=== PATIENT | female | born 1995 | race Caucasian/White ===

== ENCOUNTER 2017-09-04 20:46 | Outpatient (CLI) | payer MEDICAID ==
[~2017-09-04] VITALS: Ht 185.4 cm; Wt 127.7 kg
[~2017-09-04 20:46] MED LIST: AGM875T PO; ANTI14DR2 OT; CIPRO HC RIGHT EAR; DEPAKOTE PO; DVL250TEC PO; FAMO-119 PO; HYDR-3730 PO; LEVO500T69 PO; ONDA-42 PO; PROZAC; TOPAMAX; TRI SPRINTEC PO; TRM50T PO
[2017-09-04 21:11] VITALS: BP 127/72
[2017-09-04] MEDS ORDERED: PREN1TAB19 PO (21:28)
[2017-09-04] MEDS ORDERED: TOPI200T25 PO (21:28)
--- NOTE | 2017-09-05 08:56 | Physician Query-Final Dx ---
JENIFER QUIGLEY 09/05/17 0855: Clinic Account Progress/Dx Physician Query: Please give diagnosis Date of Service Sep 04, 2017 at 20:46 SAIMA TEJADA MD 09/06/17 0817: Clinic Account Progress/Dx DIAGNOSIS: Diagnosis false labor JENIFER QUIGLEY Sep 05, 2017 08:55 SAIMA TEJADA MD Sep 06, 2017 08:17
== END 2017-09-04 21:45 | disposition home or self-care (01) ==
LOC: LDRP 20:46 → WSo 20:46
PROVIDERS: ATTEND Obstetrics & Gynecology
DX: O47.1 False labor at or after 37 completed weeks of gestation (principal); Z3A.37 37 weeks gestation of pregnancy
CPT/HCPCS: 99212

== ENCOUNTER 2017-09-15 11:55 | Outpatient (CLI) | payer MEDICAID ==
[~2017-09-15] VITALS: Ht 185.4 cm; Wt 128.8 kg
[~2017-09-15 11:55] MED LIST changes: +PREN1TAB19 PO; +TOPI200T25 PO
[2017-09-15 12:01] VITALS: BP 121/75
== END 2017-09-15 12:15 | disposition home or self-care (01) ==
LOC: PREOP 11:55
PROVIDERS: ATTEND Obstetrics & Gynecology
DX: Z01.818 Encounter for other preprocedural examination (principal); Z11.2 Encounter for screening for other bacterial diseases; O82 Encounter for cesarean delivery without indication
CPT/HCPCS: 87081

== ENCOUNTER 2017-09-17 10:04 | Inpatient (IN) | payer MEDICAID ==
[~2017-09-17] VITALS: Ht 185.4 cm; Wt 125.2 kg
[2017-09-17 10:15] VITALS: BP 119/70
[2017-09-17] MEDS ORDERED: D5 LR IV SOLUTION 1,000 ML IV SCH (10:17)
[2017-09-17] MEDS ORDERED: ceFAZolin 2 GM IV Premixed 50 ML IV ONE ×2 (10:30)
[2017-09-17] MEDS ORDERED: metroNIDAZOLE 500MG/100ML IVPB 100 ML IV NR (10:30)
[2017-09-17 10:58] LABS: BASOPHILS % (AUTO) 0 % (0-10); EOSINOPHILS # (AUTO) 0.1 10^3/uL (0.0-0.3); EOSINOPHILS % (AUTO) 1 % (0-10); HEMATOCRIT 32 % (35-52); HEMOGLOBIN 10.9 G/DL (11.5-16.0); LYMPHOCYTES # (AUTO) 1.4 X 10^3 (1.0-4.0); LYMPHOCYTES % (AUTO) 21 % (12-44); MEAN CORPUSCULAR HEMOGLOBIN 33 PG (25-34); MEAN CORPUSCULAR HGB CONC 35 G/DL (32-36); MEAN CORPUSCULAR VOLUME 96 FL (80-99); MEAN PLATELET VOLUME 10.5 FL (7.4-10.4); MONOCYTES # (AUTO) 0.3 X 10^3 (0.0-1.0); MONOCYTES % (AUTO) 4 % (0-12); NEUTROPHILS # (AUTO) 5.1 X 10^3 (1.8-7.8); NEUTROPHILS % (AUTO) 75 % (42-75); PLATELET COUNT 209 10^3/uL (130-400); RED BLOOD COUNT 3.29 10^6/uL (4.35-5.85); WHITE BLOOD COUNT 6.8 10^3/uL (4.3-11.0)
[2017-09-17] MEDS ORDERED: LACTATED RINGERS 1,000 ML IV PRN ×2 (11:01)
[2017-09-17] MEDS ORDERED: CATHETER FLUSH 10 ML SYR IV PRN (11:15)
[2017-09-17] MEDS ORDERED: FAMOTIDINE 20MG/2ML IV (PEPCID) IV ONE (11:15)
[2017-09-17] MEDS ORDERED: CITRIC ACID/SOB CIT (BICITRA) 30 ML UDC PO ONE (11:15)
[2017-09-17] MEDS ORDERED: METOCLOPRAMIDE INJ 10 MG/2 ML (REGLAN) IV ONE (11:15)
[2017-09-17] MEDS ORDERED: fentaNYL INJECTION 100 MCG/2 ML AMP ONE (11:33)
[2017-09-17] MEDS ORDERED: OXYTOCIN/NORMAL SALINE 1,000 ML IV ONE (11:33)
[2017-09-17] MEDS ORDERED: ONDANSETRON 4 MG/2 ML (SDV) Z0FRAN ONE (11:33)
--- NOTE | 2017-09-17 11:59 | History & Physical ---
History and Physical Date Seen by Provider: Sep 17, 2017 Time Seen by Provider: 11:55 This patient is a 21-year-old G1 white female with EDC of 2 2117. She has been followed in [place] for the first portion of her transferring her care to [place] at 37 weeks gestation. She also sees Dr. Montanez high-risk OB in [place]. Her is complicated by defect including cleft lip and palate Dr. Montanez felt that these defects would not necessitate NICU at the time of delivery and felt it was appropriate for this patient to deliver at her location of choice and she is elected to deliver here. She has requested a primary which I agree with because the presenting part is at a high station even though she is at term and this patient has a history of seizure disorders that she indicates that her briefly precipitated by pain. Patient had GBS culture on September 03, 2017 that was negative. Patient denies ruptured membranes or bleeding. Allergies are none although there may be some reaction to codeine Medications are vitamins and Topamax Past medical history, past surgical history, obstetric history, family history, and social histories are per the antepartum record HEENT exam is normal Neck is supple no lymphadenopathy and no thyromegaly Abdomen is gravid soft nontender nondistended Extremities show clubbing cyanosis is no Homans sign. Pelvic exam is deferred monitor shows an occasional contraction with a normal heart rate pattern Laboratory Tests Test 09/17/17 10:35 Range/Units White Blood Count 6.8 4.3-11.0 10^3/uL Red Blood Count 3.29 L 4.35-5.85 10^6/uL Hemoglobin 10.9 L 11.5-16.0 G/DL Hematocrit 32 L 35-52 % Mean Corpuscular Volume 96 80-99 FL Mean Corpuscular Hemoglobin 33 25-34 PG Mean Corpuscular Hemoglobin Concent 35 32-36 G/DL Red Cell Distribution Width 14.0 10.0-14.5 % Platelet Count 209 130-400 10^3/uL Mean Platelet Volume 10.5 H 7.4-10.4 FL Neutrophils (%) (Auto) 75 42-75 % Lymphocytes (%) (Auto) 21 12-44 % Monocytes (%) (Auto) 4 0-12 % Eosinophils (%) (Auto) 1 0-10 % Basophils (%) (Auto) 0 0-10 % Neutrophils # (Auto) 5.1 1.8-7.8 X 10^3 Lymphocytes # (Auto) 1.4 1.0-4.0 X 10^3 Monocytes # (Auto) 0.3 0.0-1.0 X 10^3 Eosinophils # (Auto) 0.1 0.0-0.3 10^3/uL Basophils # (Auto) 0.0 0.0-0.1 10^3/uL Assessment and plan term complicated cleft lip and cleft palate. Patient also has a history of seizure disorders precipitated by pain and has elected to have a primary delivery. Presenting part is at high station and despite being at term which makes likely more appropriate in any event. Surgical risk complication recovering follow-up have been fully discussed patient agrees with plan and accepts those risks and is ready to proceed 39 week gestation complicated by left lip and palate presenting for primary delivery due to high station and maternal seizure disorder Allergies and Home Medications Allergies Coded Allergies: codeine (Verified Allergy, Unknown, RASH when younger, 09/15/17) Home Medications Vit/Iron Fumarate/FA 1 Each Tablet, 1 EACH PO DAILY, (Reported) Topiramate 200 Mg Tablet, 200 MG PO BID, (Reported) SAIMA TEJADA MD Sep 17, 2017 11:59
[2017-09-17] MEDS ORDERED: OXYTOCIN/NORMAL SALINE 500 ML IV SCH (12:24)
[2017-09-17] MEDS ORDERED: ONDANSETRON 4 MG/2 ML (SDV) Z0FRAN IVP PRN (12:30)
[2017-09-17] MEDS ORDERED: PROMETHAZINE INJ 25 MG/ML (PHENERGAN) AMP IM PRN (12:30)
[2017-09-17] MEDS ORDERED: MEPERIDINE (DEMEROL) INJ 100 MG/ML IM PRN (12:30)
[2017-09-17] MEDS ORDERED: TETANUS,DIPTH,PERTUSS P/F (BOOSTRIX) 0.5 ML VIAL IM ONE (12:30)
[2017-09-17] MEDS ORDERED: MEASLES,MUMPS,RUBELLA 1 EA INJ SC ONE (12:30)
[2017-09-17] MEDS ORDERED: D5 LR IV SOLUTION 1,000 ML IV ONE (12:32)
[2017-09-17] MEDS ORDERED: PHENYLEPHRINE 100 MCG/ML 10 ML (ANESTHESIA) SYR ONE (13:30)
[2017-09-17 15:56] VITALS: BP 99/67
[2017-09-17] MEDS: KETOROLAC 30 MG/ML VIAL IVP SCH (16:00)
[2017-09-17] MEDS: oxyCODONE/APAP 10/325MG (PERCOCET 10) TABLET PO PRN ×2 (16:00→19:59)
[2017-09-17] MEDS: DOCUSATE SODIUM 100 MG (COLACE) CAP PO SCH (19:58)
[2017-09-17 20:00] VITALS: BP 114/70
--- NOTE | 2017-09-17 21:01 | OPERATIVE REPORT ---
DATE OF SERVICE: 09/17/2017 PREOPERATIVE DIAGNOSES: Term at 39 weeks gestation with high station at term and with known anomaly of the cleft lip and cleft palate. POSTOPERATIVE DIAGNOSES: Term at 39 weeks gestation with high station at term and with known anomaly of the cleft lip and cleft palate. OPERATIVE PROCEDURE: Primary low transverse delivery of a viable male infant with Apgars that are pending. Weight is 6 pounds 10 ounces. Cord blood arterial gas of 7.2 and a time of 1304. OPERATIVE DESCRIPTION: With the patient in the supine position under satisfactory spinal anesthesia, she was prepped and draped in the usual fashion for abdominal surgery. Squires catheter was placed in the urinary bladder. A Pfannenstiel incision made through the skin with a scalpel. The patient had been entered in the usual manner. Bladder retractor placed in position clean scalpel used to make a 4 cm hysterotomy incision transversally across the lower uterine segment that was extended by blunt dissection as well. Pea green amniotic fluid was released on the amniotomy. The incision was extended bluntly. Hughes forceps were applied to facilitate the delivery of a viable male infant. Hughes forceps were applied to avoid the inherent pressure on the upper abdomen as this patient has a history of seizures when under and pain. The delivery was quite simple, with the Hughes forceps. The was bulb suctioned on delivery of the head. The did have a cleft lip and palate. There was a double nuchal cord that was easily released. The delivery was completed and the was bulb suctioned as the cord was doubly clamped and cut. The passed to the pediatric attendant, was Dr. Stearns some bacteriology research assistant. The cord bloods were obtained. The placenta delivered spontaneously Hagan. It was normal with a 3-vessel cord. The uterus was exteriorized, the interior wiped clean with a wet laparotomy sponge and the uterine incision closed with a running lock suture of 2-0 Vicryl. Hemostasis was complete. The uterus was returned to abdominal cavity. All blood clot and debris removed from the abdominal cavity. With sponge and needle counts correct, hemostasis assured. The anterior parietal peritoneum was closed with a running suture of 2-0 Vicryl. The rectus muscles were closed with that suture as well. The rectus fascia was closed with 2-0 Vicryl, the subcutaneous tissue with 2-0 Vicryl and the skin was stapled. Sponge and needle counts were correct at the end of the procedure. Estimated blood loss for procedure around 600 mL. The patient tolerated the procedure well and was transferred to recovery room in stable condition. The was in the cubicle under the care of Dr. Stearns as the was completed. Job ID: [id number] DocumentID: [id number] Dictated Date: 09/17/2017 13:26:06 Color Tester Date: 09/17/2017 21:00:17 Dictated By: SAIMA TEJADA MD
[2017-09-18 00:56] VITALS: BP 108/67
[2017-09-18] MEDS: KETOROLAC 30 MG/ML VIAL IVP SCH ×3 (00:56→20:25)
[2017-09-18] MEDS: oxyCODONE/APAP 10/325MG (PERCOCET 10) TABLET PO PRN ×2 (02:06→15:49)
[2017-09-18 04:45] VITALS: BP 104/74
[2017-09-18 08:00] VITALS: BP 108/65
[2017-09-18] MEDS: DOCUSATE SODIUM 100 MG (COLACE) CAP PO SCH ×2 (08:17→21:19)
--- NOTE | 2017-09-18 08:34 | Progress Note-Standard ---
Standard Progress Note Progress Notes/Assess & Plan Date Seen by Provider: Sep 18, 2017 Time Seen by Provider: 08:33 Progress/Assessment & Plan This patient is without complaint. She is ambulating, voiding, and by mouth well and has good pain control. She denies headache, denies shortness breath, denies nausea vomiting, denies chest pain. Vital Signs Date Time Temp Pulse Resp B/P (MAP) Pulse Ox O2 Delivery O2 Flow Rate FiO2 09/18/17 08:00 96.6 80 20 108/65 (79) 99 Room Air 09/18/17 04:45 97.4 80 18 104/74 (84) 99 Room Air 09/18/17 00:56 98.2 84 20 108/67 (81) 99 Room Air 09/17/17 20:00 98.1 70 18 114/70 (85) 99 Room Air 09/17/17 15:56 97.3 72 18 99/67 (78) 100 Room Air 09/17/17 15:45 Room Air 09/17/17 10:15 98.1 93 18 119/70 (86) 98 Room Air I & O 09/18/17 07:00 Intake Total 5020 ml Output Total 2300 ml Balance 2720 ml Vital signs are stable. Patient is afebrile. Abdomen is benign. Surgical incision is clean dry and intact. Adela show clubbing cyanosis. There is no Homans sign. There is some pretibial pitting edema that is normal. Assessment and plan is operative day number 1 status post primary doing well. Plan is for routine,. Convalescence care SAIMA TEJADA MD Sep 18, 2017 8:34 am
[2017-09-18 12:00] VITALS: BP 112/64
[2017-09-18] MEDS: IBUPROFEN 800 MG (MOTRIN) TAB PO SCH ×2 (12:36→18:47)
--- NOTE | 2017-09-18 15:08 | Anesthesia-Regional Post-Op ---
Regional Patient Condition Mental Status: Alert, Oriented x3 Circulation: Same as Pre-Op Headache: Absent Sensation: Full Recovery Motor Block: Absent Post Op Complications Complications None Follow Up Care/Instructions Patient Instructions None needed. Anesthesia/Patient Condition Patient is doing well, no complaints, stable vital signs, no apparent adverse anesthesia problems. No complications reported per nursing. BRANDYN BANKS CRNA Sep 18, 2017 15:07
[2017-09-18 15:55] VITALS: BP 123/75
[2017-09-18 21:19] VITALS: BP 110/68
[2017-09-19 04:10] VITALS: BP 122/77
[2017-09-19] MEDS: IBUPROFEN 800 MG (MOTRIN) TAB PO SCH ×2 (04:10→10:10)
--- NOTE | 2017-09-19 07:40 | Progress Note-Standard ---
Standard Progress Note Progress Notes/Assess & Plan Date Seen by Provider: Sep 19, 2017 Time Seen by Provider: 07:39 Progress/Assessment & Plan This patient is without complaint. She is ambulating, voiding, and by mouth well and has good pain control. She denies headache, denies shortness breath, denies nausea vomiting, denies chest pain. Vital Signs Date Time Temp Pulse Resp B/P (MAP) Pulse Ox O2 Delivery O2 Flow Rate FiO2 09/18/17 08:00 96.6 80 20 108/65 (79) 99 Room Air 09/18/17 04:45 97.4 80 18 104/74 (84) 99 Room Air 09/18/17 00:56 98.2 84 20 108/67 (81) 99 Room Air 09/17/17 20:00 98.1 70 18 114/70 (85) 99 Room Air 09/17/17 15:56 97.3 72 18 99/67 (78) 100 Room Air 09/17/17 15:45 Room Air 09/17/17 10:15 98.1 93 18 119/70 (86) 98 Room Air I & O 09/18/17 07:00 Intake Total 5020 ml Output Total 2300 ml Balance 2720 ml Vital signs are stable. Patient is afebrile. Abdomen is benign. Surgical incision is clean dry and intact. Adela show clubbing cyanosis. There is no Homans sign. There is some pretibial pitting edema that is normal. Assessment and plan is operative day number 1 status post primary doing well. Plan is for routine,. Convalescence care September 19, 2017 Patient is without complaint. She is ambulating, voiding, tolerating well, has good pain control. She denies chest pain, denies shortness breath, denies nausea vomiting, denies headache. Vital Signs Date Time Temp Pulse Resp B/P (MAP) Pulse Ox O2 Delivery O2 Flow Rate FiO2 09/19/17 04:10 97.8 96 18 122/77 (92) 99 Room Air 09/18/17 21:19 98.1 77 18 110/68 (82) 99 Room Air 09/18/17 15:55 97.9 101 16 123/75 (91) 97 Room Air 09/18/17 12:00 97.4 76 20 112/64 (80) 99 Room Air 09/18/17 08:00 96.6 80 20 108/65 (79) 99 Room Air I & O 09/19/17 07:00 Intake Total 1100 ml Output Total 2050 ml Balance -950 ml Vital signs are stable. Patient is afebrile. The abdomen is benign. Surgical incision is clean dry and intact. Extremities show no clubbing cyanosis. There is no Homans sign. There is some pretibial pitting edema that is normal. Assessment and plan is operative day number 2 status post primary doing well. Plan is for discharge with allowing for rooming in until baby's discharge Final Diagnosis Term primary delivery SAIMA TEJADA MD Sep 19, 2017 7:40 am
[2017-09-19] MEDS ORDERED: IBUP-1780 PO (07:41)
[2017-09-19] MEDS ORDERED: OXYC-465 PO (07:41)
[2017-09-19] MEDS ORDERED: DOCU100C37 PO (07:41)
--- NOTE | 2017-09-19 07:42 | Discharge Instructions ---
Discharge Instructions Discharge Medications New, Converted or Re-Newed RX: RX on Chart Patient Instructions Patient Instructions: As directed Return to The Hospital For: as directed Activity & Diet Discharge Diet: No Restrictions Activity as Tolerated: No Orders-Post D/C & Referrals Follow Up Appt: RTC 1 week for incision check. Call to make follow up appt. for patient in 4 weeks. Wound Care: Remove jason, apply benzoin and steri strips. Activity Per routine post instructions. Please call in RX to patient pharmacy. Diet as tolerated Patient may shower or tub bathe as desired. Continue home meds SAIMA TEJADA MD Sep 19, 2017 7:42 am
[2017-09-19 10:00] VITALS: BP_SYST 112; BP_SYST 140; BP_DIAS 71; BP_DIAS 99
[2017-09-19] MEDS: DOCUSATE SODIUM 100 MG (COLACE) CAP PO SCH (10:09)
[2017-09-19] MEDS: oxyCODONE/APAP 10/325MG (PERCOCET 10) TABLET PO PRN (10:09)
[2017-09-19] MEDS ORDERED: TETANUS,DIPTH,PERTUSS P/F (BOOSTRIX) 0.5 ML VIAL IM ONE (11:01)
[2017-09-19] MEDS ORDERED: MEASLES,MUMPS,RUBELLA 1 EA INJ ONE (11:02)
[2017-09-19 12:25] VITALS: BP 112/71
== END 2017-09-19 12:25 | disposition home or self-care (01) | DRG 765 ==
LOC: LDRP 10:04
PROVIDERS: ADMIT Obstetrics & Gynecology; ATTEND Obstetrics & Gynecology
PROC: 10D00Z1 Extraction of Products of Conception, Low, Open Approach (ICD-10-PCS; principal; 2017-09-17 12:01)
DX: O32.4XX0 Maternal care for high head at term, not applicable or unspecified (principal); O99.354 Diseases of the nervous system complicating childbirth; G40.909 Epilepsy, unspecified, not intractable, without status epilepticus; O35.8XX0 Maternal care for other (suspected) fetal abnormality and damage, not applicable or unspecified; O69.81X0 Labor and delivery complicated by cord around neck, without compression, not applicable or unspecified; Z3A.39 39 weeks gestation of pregnancy; Z37.0 Single live birth; Z23 Encounter for immunization
CPT/HCPCS: 36415; 85025; 86850; 86900; 86901; 90707; 90715; 94664

== ENCOUNTER 2022-03-03 20:50 | Emergency (ER) | payer MEDICAID ==
[~2022-03-03] VITALS: Ht 185.5 cm; Wt 136.0 kg
[~2022-03-03 20:50] MED LIST changes: +DOCU100C37 PO; +IBUP-1780 PO; +OXYC-556 PO
--- NOTE | 2022-03-03 21:21 | ED GI ---
General Stated Complaint: HEARTBURN/CP Source of Information: Patient Exam Limitations: No Limitations History of Present Illness Date Seen by Provider: Mar 03, 2022 Time Seen by Provider: 20:46 Initial Comments 1 month of progressively worsening substernal pain GERD reflux and saw some blood in her reflux/emesis tonight. She been using baking soda to treat her symptoms. No history of endoscopy or surgeries. She does have a history of gallbladder issues. Not having any right upper quadrant pain. No fevers or chills. No history of heart disease. No history of pancreatitis or drinking. She is on lithium and venlafaxine for mental health issues. She rates her pain is 5 out of 10 Allergies and Home Medications Allergies Coded Allergies: codeine (Verified Allergy, Unknown, RASH when younger, 09/15/17) Patient Home Medication List Home Medication List Reviewed: Yes Docusate Sodium (Docusate Sodium) 100 Mg Capsule, 100 MG PO BID Prescribed by: SAIMA VELAZQUEZ on 09/19/17 0741 Ibuprofen (Ibuprofen) 800 Mg Tablet, 800 MG PO Q6H Prescribed by: SAIMA VELAZQUEZ on 09/19/17 0741 Oxycodone HCl/Acetaminophen (Oxycodone-Acetaminophen 10-325) 1 Each Tablet, 1-2 TAB PO Q4HR PRN for PAIN-MODERATE TO SEVERE Prescribed by: SAIMA VELAZQUEZ on 09/19/17 0741 Vit/Iron Fumarate/FA ( Vitamins Tablet) 1 Each Tablet, 1 EACH PO DAILY, (Reported) Entered as Reported by: LUPE PAGE on 09/04/172127 Topiramate (Topamax) 200 Mg Tablet, 200 MG PO BID, (Reported) Entered as Reported by: LUPE PAGE on 09/04/172127 Review of Systems Review of Systems Constitutional: no symptoms reported EENTM: No Symptoms Reported Respiratory: No Symptoms Reported Cardiovascular: See HPI Gastrointestinal: See HPI Genitourinary: No Symptoms Reported Musculoskeletal: no symptoms reported All Other Systems Reviewed Negative Unless Noted: Yes Past Niligxt-Flopsj-Nawunb Hx Patient Social History Tobacco Use?: Yes Tobacco type used: Cigarettes Smoking Status: Current Everyday Smoker (0.5 ppd) Use of E-Cig and/or Vaping dev: No Substance use?: No Alcohol Use?: No Immunizations Up To Date Tetanus Booster (TDap): Less than 5yrs PED Vaccines UTD: Yes Seasonal Allergies Seasonal Allergies: No Past Medical History Surgeries: Yes (knee scope, breast lumpectomy) Respiratory: No Cardiac: No Neurological: Yes (last seizure over a yr) Seizure Disorder Reproductive Disorders: No Female Reproductive Disorders: Denies Sexually Transmitted Disease: No HIV/AIDS: No Genitourinary: No Gastrointestinal: No Musculoskeletal: No Endocrine: No HEENT: No Loss of Vision: Denies Hearing Impairment: Denies Cancer: No Psychosocial: Yes Bipolar Integumentary: No Blood Disorders: No Family Medical History Asthma 19 FATHER G8 SISTER Cardiovascular disease GRANDFATHER, PATERNAL Diabetes mellitus 19 MOTHER GRANDFATHER, PATERNAL FH: liver disease 19 MOTHER Hypertension 19 MOTHER Physical Exam Vital Signs Capillary Refill : Height/Weight/BMI Height: 6'1.00" Weight: 276lbs. 0.4oz. 125.239042yq; 36.4 BMI Method:Estimated General Appearance: WD/WN, no apparent distress HEENT: PERRL/EOMI, pharynx normal Neck: non-tender, full range of motion, supple, normal inspection Respiratory: lungs clear, normal breath sounds, no respiratory distress, no accessory muscle use Cardiovascular: normal peripheral pulses, regular rate, rhythm Peripheral Pulses: 2+ Radial Pulses (R), 2+ Radial Pulses (L) Gastrointestinal: normal bowel sounds, soft, no organomegaly, tenderness (Epigastric region mild. No acute abdomen on exam) Extremities: normal range of motion, normal inspection, normal capillary refill Neurologic/Psychiatric: alert, normal mood/affect, oriented x 3 Skin: normal color, warm/dry Progress/Results/Core Measures Results/Orders My Orders Orders - FRANCES DUTTON Continuous Ekg Monitoring (03/03/22 20:53) Ekg Tracing (03/03/22 20:53) Progress Progress Note : Time: 21:20 Progress Note Plan a GI cocktail and acid inhibitor. Follow-up outpatient with general surgery for potential endoscopy Initial ECG Impression Date: Mar 03, 2022 Initial ECG Impression Time: 21:02 Initial ECG Rate: 93 Initial ECG Rhythm: Normal Sinus Initial ECG Intervals: Normal Initial ECG Impression: Normal Comment Normal sinus rhythm without clinically relevant ST elevation or depression. Departure Impression Primary Impression: Gastritis Qualified Codes: K29.01 - Acute gastritis with bleeding Additional Impressions: Esophagitis GERD (gastroesophageal reflux disease) Qualified Codes: K21.01 - Gastro-esophageal reflux disease with esophagitis, with bleeding Disposition: HOME, SELF-CARE Condition: Stable Departure-Patient Inst. Decision time for Depature: 21:40 Referrals: [facility] [place] (PCP/Family) Primary Care Physician HADLEY ELIZABETH DO Patient Instructions: Acid Reflux and Gastroesophageal Reflux Disease in Adults Add. Discharge Instructions: Drink plenty of fluids. If you are reflux and/or indigestion returns then take Tums, Rolaids, Mylanta, Maalox etc. Start taking pantoprazole 20 mg twice a day for the next month to reduce stomach acid production. Carafate can be taken half an hour before meals and at bedtime for a total of 4 times a day for the next 2 weeks to protect the lining of your esophagus and stomach. If your symptoms are persistent then I recommend you follow-up with the surgeon by calling for an appointment in the morning to discuss endoscopy. Scripts Sucralfate (Carafate) 1 Gram Tablet 1 GM PO QIDACHS for 14 Days, #56 TAB 0 Refills Prov: FRANCES DUTTON 03/03/22 Pantoprazole Sodium (Pantoprazole Sodium) 20 Mg Tablet.dr 20 MG PO BID for 30 Days, #60 TAB 0 Refills Prov: FARNCES DUTTON 03/03/22 Copy Copies To 1: HADLEY ELIZABETH DO FRANCES DUTTON Mar 03, 2022 21:21
[2022-03-03] MEDS ORDERED: FAMOTIDINE 20 MG (PEPCID) TABLET PO STA (21:39)
[2022-03-03] MEDS ORDERED: PANT20TA18 PO (21:42)
[2022-03-03] MEDS ORDERED: SUCR1TAB36 PO (21:42)
[2022-03-03] MEDS ORDERED: LIDOCAINE 2% VISCOUS 15 ML UDC PO ONE (21:45)
[2022-03-03] MEDS ORDERED: ANTACID SUSP 30 ML UDC (MYLANTA) PO ONE (21:45)
[2022-03-03 22:12] VITALS: BP 142/98
== END 2022-03-03 22:13 | disposition home or self-care (01) ==
LOC: EDUNIT# 20:50 → ER 20:52
DX: K21.00 Gastro-esophageal reflux disease with esophagitis, without bleeding (principal); K29.70 Gastritis, unspecified, without bleeding; F17.210 Nicotine dependence, cigarettes, uncomplicated; Z28.310 Unvaccinated for COVID-19
CPT/HCPCS: 93005

== ENCOUNTER 2022-04-06 16:44 | Emergency (ER) | payer MEDICAID ==
[~2022-04-06 16:44] MED LIST changes: +PANT20TA18 PO; +SUCR1TAB36 PO
[2022-04-06] MEDS ORDERED: SULF1TAB38 PO (17:05)
--- NOTE | 2022-04-06 17:05 | ED Integumentary General ---
General Stated Complaint: ABSCESS ON INNER RIGHT THIGH Source: patient Exam Limitations: no limitations History of Present Illness Date Seen by Provider: Apr 06, 2022 Time Seen by Provider: 16:53 Initial Comments This patient shows up to the ER by private conveyance for chief complaint of 1 day of swelling redness and a san in her left medial thigh proximally. She did have one earlier that she drained on her own. This 1 is causing pain swelling and redness. She does not have hidradenitis suppurativa. No immunocompromise. No fevers, chills, nausea vomiting or diarrhea. Allergies and Home Medications Allergies Coded Allergies: codeine (Verified Allergy, Unknown, RASH when younger, 09/15/17) Patient Home Medication List Home Medication List Reviewed: Yes Docusate Sodium (Docusate Sodium) 100 Mg Capsule, 100 MG PO BID Prescribed by: SAIMA VELAZQUEZ on 09/19/17 0741 Ibuprofen (Ibuprofen) 800 Mg Tablet, 800 MG PO Q6H Prescribed by: SAIMA VELAZQUEZ on 09/19/17 0741 Oxycodone HCl/Acetaminophen (Oxycodone-Acetaminophen 10-325) 1 Each Tablet, 1-2 TAB PO Q4HR PRN for PAIN-MODERATE TO SEVERE Prescribed by: SAIMA VELAZQUEZ on 09/19/17 0741 Pantoprazole Sodium (Pantoprazole Sodium) 20 Mg Tablet.dr, 20 MG PO BID Prescribed by: FRANCES DUTTON on 03/03/222141 Vit/Iron Fumarate/FA ( Vitamins Tablet) 1 Each Tablet, 1 EACH PO DAILY, (Reported) Entered as Reported by: LUPE PAGE on 09/04/172127 Sucralfate (Carafate) 1 Gram Tablet, 1 GM PO QIDACHS Prescribed by: FRANCES DUTTON on 03/03/222141 Sulfamethoxazole/Trimethoprim (Bactrim Ds Tablet) 1 Each Tablet, 1 EACH PO BID Prescribed by: FRANCES DUTTON on 04/06/221704 Topiramate (Topamax) 200 Mg Tablet, 200 MG PO BID, (Reported) Entered as Reported by: LUPE PAGE on 09/04/172127 Review of Systems Review of Systems Constitutional: No chills, No diaphoresis EENTM: No ear discharge, No ear pain Respiratory: No cough Cardiovascular: no symptoms reported Gastrointestinal: no symptoms reported Genitourinary: no symptoms reported Musculoskeletal: no symptoms reported All Other Systems Reviewed Negative Unless Noted: Yes Past Fconzai-Gqgzph-Ypligz Hx Patient Social History Tobacco Use?: No Use of E-Cig and/or Vaping dev: No Immunizations Up To Date Tetanus Booster (TDap): Less than 5yrs PED Vaccines UTD: Yes Seasonal Allergies Seasonal Allergies: No Past Medical History Surgery/Hospitalization HX: C SECTION Surgeries: Yes (knee scope, breast lumpectomy) Respiratory: No Cardiac: No Neurological: Yes (last seizure over a yr) Seizure Disorder Reproductive Disorders: No Female Reproductive Disorders: Denies Sexually Transmitted Disease: No HIV/AIDS: No Genitourinary: No Gastrointestinal: No Musculoskeletal: No Endocrine: No HEENT: No Loss of Vision: Denies Hearing Impairment: Denies Cancer: No Psychosocial: Yes Bipolar Integumentary: No Blood Disorders: No Family Medical History Asthma 19 FATHER G8 SISTER Cardiovascular disease GRANDFATHER, PATERNAL Diabetes mellitus 19 MOTHER GRANDFATHER, PATERNAL FH: liver disease 19 MOTHER Hypertension 19 MOTHER Physical Exam Vital Signs Capillary Refill : General Appearance: WD/WN, no apparent distress HEENT: PERRL/EOMI, pharynx normal Neck: full range of motion, normal inspection Cardiovascular: normal peripheral pulses, regular rate, rhythm Respiratory: no respiratory distress, no accessory muscle use Skin: other (Left inner proximal medial thigh has a san with some surrounding induration, fluctuance and erythema. ) Procedures/Interventions I&D : Site: left medial thigh Blade Size: 11 I & D Procedure: betadine prep (Alcohol) Progress Site was thoroughly cleaned and abraded using alcohol. We are allowed to dry and then we used a 25-gauge 1-1/2 inch needle to infiltrate with 3 cc of 1% lidocaine. When the patient was ascertained to be well anesthetized in the area we used an 11 blade scalpel and made a crosswise incision 3 mm x 4 mm. Drained about 5 cc of thin purulent material. Using a blunt end of a sterile cotton tip swab we broke up loculations, flushed and dressed with gauze. The patient tolerated the procedure well. Progress/Results/Core Measures Results/Orders My Orders Orders - FRANCES DUTTON Sulfamethoxazole/Trimet Ds Tab (Bactrim (04/06/22 17:15) Dipht,Pertuss(Acell),Tet Adult (Boostrix (04/06/22 17:30) Progress Progress Note : Time: 17:03 Progress Note We will start her on Bactrim twice daily for a week and I&D after using lidocaine. Departure Impression Primary Impression: Folliculitis Additional Impression: Abscess Disposition: 01 HOME, SELF-CARE Condition: Stable Departure-Patient Inst. Decision time for Depature: 17:20 Referrals: [facility] (PCP/Family) Primary Care Physician Patient Instructions: Abscess Incision and Drainage (DC) Add. Discharge Instructions: Keep the skin clean with regular soap and water and dry thoroughly. Change the dressing as often as necessary for soiling or at least daily until it stops draining. Typically will stop draining in 1 to 2 days. Tylenol and Motrin as necessary for pain. Bactrim DS 1 tablet twice a day for a week to prevent recurrent infections. If the wound heals over and looks good then you may take the antibiotics for another 1 or 2 days and stop them early. Scripts Sulfamethoxazole/Trimethoprim (Bactrim Ds Tablet) 1 Each Tablet 1 EACH PO BID for 7 Days, #14 TAB 0 Refills Prov: FRANCES DUTTON 04/06/22 FRANCES DUTTON Apr 06, 2022 17:05
[2022-04-06] MEDS ORDERED: TRIM/SULFAMETH 160/800 (SEPTRA DS) TAB PO ONE (17:15)
[2022-04-06 17:30] VITALS: BP 132/86
[2022-04-06] MEDS ORDERED: TETANUS,DIPTH,PERTUSS P/F (BOOSTRIX) 0.5 ML VIAL IM ONE (17:30)
== END 2022-04-06 17:30 | disposition home or self-care (01) ==
LOC: EDUNIT# 16:44 → ER 16:47
DX: L02.416 Cutaneous abscess of left lower limb (principal); L73.9 Follicular disorder, unspecified; Z23 Encounter for immunization
CPT/HCPCS: 10060; 90715

== ENCOUNTER 2022-04-12 20:59 | Emergency (ER) | payer MEDICAID ==
[~2022-04-12] VITALS: Ht 185.5 cm; Wt 124.0 kg
[~2022-04-12 20:59] MED LIST changes: +SULF1TAB38 PO
[2022-04-12] MEDS ORDERED: CEPH500T PO (21:50)
--- NOTE | 2022-04-12 21:50 | ED Integumentary General ---
General Stated Complaint: CYST Source: patient Exam Limitations: no limitations History of Present Illness Date Seen by Provider: Apr 12, 2022 Time Seen by Provider: 21:47 Initial Comments To Er with c/o "cyst" lower anterior abdominal wall. This was noticed yesterday. She is on bactrim for left thigh folliculitis seen here in ER 6 days ago. No fevers or chills. Timing/Duration: just prior to arrival Severity: moderate Location: none Associated Symptoms: denies symptoms Allergies and Home Medications Allergies Coded Allergies: codeine (Verified Allergy, Unknown, RASH when younger, 09/15/17) Patient Home Medication List Home Medication List Reviewed: Yes Docusate Sodium (Docusate Sodium) 100 Mg Capsule, 100 MG PO BID Prescribed by: SAIMA VELAZQUEZ on 09/19/17 0741 Ibuprofen (Ibuprofen) 800 Mg Tablet, 800 MG PO Q6H Prescribed by: SAIMA VELAZQUEZ on 09/19/17 0741 Oxycodone HCl/Acetaminophen (Oxycodone-Acetaminophen 10-325) 1 Each Tablet, 1-2 TAB PO Q4HR PRN for PAIN-MODERATE TO SEVERE Prescribed by: SAIMA VELAZQUEZ on 09/19/17 0741 Pantoprazole Sodium (Pantoprazole Sodium) 20 Mg Tablet.dr, 20 MG PO BID Prescribed by: FRANCES DUTTON on 03/03/222141 Vit/Iron Fumarate/FA ( Vitamins Tablet) 1 Each Tablet, 1 EACH PO DAILY, (Reported) Entered as Reported by: LUPE PAGE on 09/04/172127 Sucralfate (Carafate) 1 Gram Tablet, 1 GM PO QIDACHS Prescribed by: FRANCES DUTTON on 03/03/222141 Sulfamethoxazole/Trimethoprim (Bactrim Ds Tablet) 1 Each Tablet, 1 EACH PO BID Prescribed by: FRANCES DUTTON on 04/06/22 170 Topiramate (Topamax) 200 Mg Tablet, 200 MG PO BID, (Reported) Entered as Reported by: LUPE PAGE on 09/04/172127 Review of Systems Review of Systems Constitutional: see HPI EENTM: see HPI Respiratory: no symptoms reported Cardiovascular: no symptoms reported Genitourinary: no symptoms reported Musculoskeletal: no symptoms reported Skin: see HPI Psychiatric/Neurological: No Symptoms Reported Endocrine: No Symptoms Reported Past Gvikgpz-Xwjvni-Gofygm Hx Immunizations Up To Date Tetanus Booster (TDap): Less than 5yrs PED Vaccines UTD: Yes Seasonal Allergies Seasonal Allergies: No Past Medical History Surgery/Hospitalization HX: C SECTION Surgeries: Yes (knee scope, breast lumpectomy) Respiratory: No Cardiac: No Neurological: Yes (last seizure over a yr) Seizure Disorder Reproductive Disorders: No Female Reproductive Disorders: Denies Sexually Transmitted Disease: No HIV/AIDS: No Genitourinary: No Gastrointestinal: No Musculoskeletal: No Endocrine: No HEENT: No Loss of Vision: Denies Hearing Impairment: Denies Cancer: No Psychosocial: Yes Bipolar Integumentary: No Blood Disorders: No Family Medical History Asthma 19 FATHER G8 SISTER Cardiovascular disease GRANDFATHER, PATERNAL Diabetes mellitus 19 MOTHER GRANDFATHER, PATERNAL FH: liver disease 19 MOTHER Hypertension 19 MOTHER Physical Exam Vital Signs Capillary Refill : General Appearance: WD/WN, no apparent distress Neck: non-tender, full range of motion Respiratory: no respiratory distress, no accessory muscle use Extremities: normal range of motion Neurologic/Psychiatric: alert, normal mood/affect, oriented x 3 Skin: normal color, warm/dry Skin Problem Character: abscess (anterior abdominal wall fluctuant abscess 3cm with about 15cm surrounding erythema.) Procedures/Interventions I&D : Blade Size: 11 Progress culture collected Progress/Results/Core Measures Results/Orders My Orders Orders - JOHN GOLDSTEIN APRN Wound Culture (04/12/22 21:42) Departure Impression Primary Impression: Abscess Disposition: 01 HOME, SELF-CARE Condition: Stable Departure-Patient Inst. Decision time for Depature: 21:49 [address]: [facility] [place] (PCP/Family) Primary Care Physician Patient Instructions: ABSCESS Add. Discharge Instructions: add the new antibiotic to the bactrim. return to ER for any worsening. Scripts Cephalexin (Cephalexin) 500 Mg Tablet 500 MG PO TID, #20 TAB Prov: JOHN GOLDSTEIN APRN 04/12/22 JOHN GOLDSTEIN APRN Apr 12, 2022 21:50
[2022-04-12] MEDS ORDERED: LIDOCAINE 1% INJ 20 ML VIAL INJ ONE (22:00)
[2022-04-12] MEDS ORDERED: cefTRIAXone 1,000 MG VIAL IM ONE (22:00)
[2022-04-12 22:40] VITALS: BP 130/90
== END 2022-04-12 22:40 | disposition home or self-care (01) ==
LOC: EDUNIT# 20:59 → ER 21:16
DX: L02.211 Cutaneous abscess of abdominal wall (principal); Z28.310 Unvaccinated for COVID-19
CPT/HCPCS: 10160; 87070; 87205

== ENCOUNTER 2022-07-17 17:28 | Emergency (ER) | payer MEDICAID ==
[~2022-07-17] VITALS: Ht 182 cm; Wt 125.0 kg
[~2022-07-17 17:28] MED LIST changes: +CEPH500T PO
[2022-07-17 17:53] LABS: BASOPHILS % (AUTO) 0 % (0-10); EOSINOPHILS # (AUTO) 0.2 10^3/uL (0.0-0.3); EOSINOPHILS % (AUTO) 2 % (0-10); HEMATOCRIT 43 % (35-52); HEMOGLOBIN 14.2 g/dL (11.5-16.0); LYMPHOCYTES # (AUTO) 2.9 10^3/uL (1.0-4.0); LYMPHOCYTES % (AUTO) 28 % (12-44); MEAN CORPUSCULAR HEMOGLOBIN 31 pg (25-34); MEAN CORPUSCULAR HGB CONC 33 g/dL (32-36); MEAN CORPUSCULAR VOLUME 93 fL (80-99); MEAN PLATELET VOLUME 9.7 fL (9.0-12.2); MONOCYTES # (AUTO) 0.6 10^3/uL (0.0-1.0); MONOCYTES % (AUTO) 6 % (0-12); NEUTROPHILS # (AUTO) 6.6 10^3/uL (1.8-7.8); NEUTROPHILS % (AUTO) 64 % (42-75); PLATELET COUNT 306 10^3/uL (130-400); WHITE BLOOD COUNT 10.4 10^3/uL (4.3-11.0)
--- NOTE | 2022-07-17 17:54 | ED Neurological Problem ---
General Chief Complaint: Neurological Problems Stated Complaint: SEIZURE Nursing Triage Note: PT NEWLY DX DIABETIC, ASLEEP WHEN SHE HAD A SEIZURE, HX OF SEIZURES, GLUCOSE OF 101, RT SIDE WEAKNESS WITH HX OF A STROKE. Source: patient Exam Limitations: no limitations (POLLY OSHEA MD) History of Present Illness Date Seen by Provider: Jul 17, 2022 Time Seen by Provider: 17:29 Initial Comments This 26-year-old young lady presents to the emergency room via EMS after having a seizure-like episode at home. Reportedly she was taking a nap with last known well time approximately 1530. She took an insulin injection just prior to her nap. Family then observed her to be having tremoring activity which was described as seizure. She does have a known seizure disorder with her last seizure being about 3 years ago according to the patient. EMS reports she has a postictal state and right-sided weakness. Patient reportedly had a stroke 6 years ago resulting in right-sided weakness similar to how she is presenting today. EMS reported blood sugar was 101. Patient states she takes Topamax for seizures. She is alert at this time but disoriented to month and year. She knows where she is and how old she is. (POLLY OSHEA MD) Allergies and Home Medications Allergies Coded Allergies: codeine (Verified Allergy, Unknown, RASH when younger, 09/15/17) Patient Home Medication List Home Medication List Reviewed: Yes (POLLY OSHEA MD) Cephalexin (Cephalexin) 500 Mg Tablet, 500 MG PO TID Prescribed by: JOHN GOLDSTEIN on 04/12/22 2150 Docusate Sodium (Docusate Sodium) 100 Mg Capsule, 100 MG PO BID Prescribed by: SAIMA VELAZQUEZ on 09/19/17 0741 Ibuprofen (Ibuprofen) 800 Mg Tablet, 800 MG PO Q6H Prescribed by: SAIMA VELAZQUEZ on 09/19/17 0741 Oxycodone HCl/Acetaminophen (Oxycodone-Acetaminophen 10-325) 1 Each Tablet, 1-2 TAB PO Q4HR PRN for PAIN-MODERATE TO SEVERE Prescribed by: SAIMA VELAZQUEZ on 09/19/17 0741 Pantoprazole Sodium (Pantoprazole Sodium) 20 Mg Tablet.dr, 20 MG PO BID Prescribed by: FRANCES DUTTON on 03/03/222141 Vit/Iron Fumarate/FA ( Vitamins Tablet) 1 Each Tablet, 1 EACH PO DAILY, (Reported) Entered as Reported by: LUPE PAGE on 09/04/172127 Sucralfate (Carafate) 1 Gram Tablet, 1 GM PO QIDACHS Prescribed by: FRANCES DUTTON on 03/03/222141 Sulfamethoxazole/Trimethoprim (Bactrim Ds Tablet) 1 Each Tablet, 1 EACH PO BID Prescribed by: FRANCES DUTTON on 04/06/221704 Topiramate (Topamax) 200 Mg Tablet, 200 MG PO BID, (Reported) Entered as Reported by: LUPE PAGE on 09/04/172127 Review of Systems Review of Systems Constitutional: no symptoms reported Eyes: No Symptoms Reported Ears, Nose, Mouth, Throat: no symptoms reported Respiratory: no symptoms reported Cardiovascular: no symptoms reported Gastrointestinal: no symptoms reported Genitourinary: no symptoms reported : No Musculoskeletal: no symptoms reported Skin: no symptoms reported Psychiatric/Neurological: See HPI Endocrine: See HPI Hematologic/Lymphatic: No Symptoms Reported (POLLY OSHEA MD) Past Xeugysk-Xqtftu-Vqdhcx Hx Patient Social History Tobacco Use?: Yes Tobacco type used: Cigarettes Smoking Status: Current Everyday Smoker Substance use?: No Alcohol Use?: No Pt feels they are or have been: No (POLLY OSHEA MD) Immunizations Up To Date Tetanus Booster (TDap): Less than 5yrs PED Vaccines UTD: Yes (POLLY OSHEA MD) Seasonal Allergies Seasonal Allergies: No (POLLY OSHEA MD) Past Medical History Surgery/Hospitalization HX: C SECTION, 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) Seizure Disorder : No Last Menstrual Period: Jul 01, 2022 Reproductive Disorders: No Female Reproductive Disorders: Denies Sexually Transmitted Disease: No HIV/AIDS: No Genitourinary: No Gastrointestinal: No Musculoskeletal: No Endocrine: No HEENT: No Loss of Vision: Denies Hearing Impairment: Denies Cancer: No Psychosocial: Yes Bipolar Integumentary: No Blood Disorders: No (POLLY OSHEA MD) Family Medical History Asthma 19 FATHER G8 SISTER Cardiovascular disease GRANDFATHER, PATERNAL Diabetes mellitus 19 MOTHER GRANDFATHER, PATERNAL FH: liver disease 19 MOTHER Hypertension 19 MOTHER Physical Exam Vital Signs Vital Signs - First Documented 07/17/22 17:30 Temp 36.2 Pulse 109 Resp 18 Pulse Ox 98 O2 [facility] Vital Signs Capillary Refill : Less Than 3 Seconds (POLLY OSHEA MD) Height, Weight, BMI Height: 6'1.00" Weight: 276lbs. 0.4oz. 125.078029ml; 37.00 BMI Method:Estimated General Appearance: WD/WN, no apparent distress HEENT: PERRL/EOMI, normal ENT inspection Neck: normal inspection Respiratory: lungs clear, normal breath sounds, no respiratory distress Cardiovascular: regular rate, rhythm, no edema, no murmur Gastrointestinal: normal bowel sounds, non tender, soft Extremities: normal inspection, no pedal edema Neurologic/Psychiatric: alert, abnormal lithographic artist II-XII (Minimal effort to smile and close eyes, no effort to raise eyebrows, no asymmetry), other (Disoriented to month and year) Crainal Nerves: normal hearing, PERRL, abnormal speech (Sluggish speech, mild dysarthria) Coordination/Gait: normal finger to nose (Normal on the left but not able to perform on the right due to weakness) Motor/Sensory: weak motor strength RUE, weak motor strength RLE Skin: normal color, warm/dry (POLLY OSHEA MD) Stroke NIH Stroke Scale Assessment Select: Initial Level of Consciousness: 0=Alert (0), Level of Consciousness- Questions: 1=Answers one question (1), LOC Commands: 0=Performs both tasks (0), Visual Fonseca: 0=No visual loss (0), Facial Movement (Facial Paresis): 1=Minor paralysis (1), Motor Function-Arms Right: 2=Some effort/gravity (2), Motor Function-Arms Left: 0=No drift (0), Motor Function-Legs Right: 3=No effort/gravity (3), Motor Function-Legs Left: 0=No drift (0), Limb Ataxia: 0=Absent (0), Sensory: 0=Normal:no loss (0), Best Language: 0=No aphasia (0), Dysarthria: 1=Mild to moderate loss (1), Extinction & Inattention: 0=No abnormality (0), Total: 8 Progress/Results/Core Measures Results/Orders Lab Results Laboratory Tests Test 07/17/22 17:36 07/17/22 17:52 07/17/22 18:36 07/17/22 18:38 Range/Units White Blood Count 10.4 4.3-11.0 10^3/uL Red Blood Count 4.64 3.80-5.11 10^6/uL Hemoglobin 14.2 11.5-16.0 g/dL Hematocrit 43 35-52 % Mean Corpuscular Volume 93 80-99 fL Mean Corpuscular Hemoglobin 31 25-34 pg Mean Corpuscular Hemoglobin Concent 33 32-36 g/dL Red Cell Distribution Width 13.5 10.0-14.5 % Platelet Count 306 130-400 10^3/uL Mean Platelet Volume 9.7 9.0-12.2 fL Immature Granulocyte % (Auto) 0 % Neutrophils (%) (Auto) 64 42-75 % Lymphocytes (%) (Auto) 28 12-44 % Monocytes (%) (Auto) 6 0-12 % Eosinophils (%) (Auto) 2 0-10 % Basophils (%) (Auto) 0 0-10 % Neutrophils # (Auto) 6.6 1.8-7.8 10^3/uL Lymphocytes # (Auto) 2.9 1.0-4.0 10^3/uL Monocytes # (Auto) 0.6 0.0-1.0 10^3/uL Eosinophils # (Auto) 0.2 0.0-0.3 10^3/uL Basophils # (Auto) 0.0 0.0-0.1 10^3/uL Immature Granulocyte # (Auto) 0.0 0.0-0.1 10^3/uL Prothrombin Time 12.9 12.2-14.7 SEC INR Comment 0.9 0.8-1.4 Activated Partial Thromboplast Time 31 24-35 SEC D-Dimer < 0.27 0.00-0.49 UG/ML Sodium Level 138 135-145 MMOL/L Potassium Level 3.6 3.6-5.0 MMOL/L Chloride Level 102 98-107 MMOL/L Carbon Dioxide Level 26 21-32 MMOL/L Anion Gap 10 5-14 MMOL/L Blood Urea Nitrogen 14 7-18 MG/DL Creatinine 0.69 0.60-1.30 MG/DL Estimat Glomerular Filtration Rate 122 BUN/Creatinine Ratio 20 Glucose Level 65 L 70-105 MG/DL Calcium Level 9.5 8.5-10.1 MG/DL Corrected Calcium 9.3 8.5-10.1 MG/DL Total Bilirubin 0.2 0.1-1.0 MG/DL Aspartate Amino Transf (AST/SGOT) 19 5-34 U/L Alanine Aminotransferase (ALT/SGPT) 33 0-55 U/L Alkaline Phosphatase 66 40-136 U/L Troponin I < 0.028 <0.028 NG/ML Total Protein 8.3 H 6.4-8.2 GM/DL Albumin 4.3 3.2-4.5 GM/DL Serum Test, Qualitative NEGATIVE NEGATIVE Glucometer 57 *L 113 H 70-110 MG/DL Urine Color YELLOW Urine Clarity CLEAR Urine pH 6.0 5-9 Urine Specific [place] 1.020 1.016-1.022 Urine Protein NEGATIVE NEGATIVE Urine Glucose (UA) NEGATIVE NEGATIVE Urine Ketones NEGATIVE NEGATIVE Urine Nitrite NEGATIVE NEGATIVE Urine Bilirubin NEGATIVE NEGATIVE Urine Urobilinogen 0.2 < = 1.0 MG/DL Urine Leukocyte Esterase 3+ H NEGATIVE Urine RBC (Auto) TRACE-I H NEGATIVE Urine RBC 0-2 /HPF Urine WBC 5-10 H /HPF Urine Squamous Epithelial Cells 5-10 /HPF Urine Crystals NONE /LPF Urine Bacteria FEW H /HPF Urine Casts NONE /LPF Urine Mucus NEGATIVE /LPF Urine Trichomonas FEW H /HPF Urine Culture Indicated YES (MAYTE BAH DO) Medications Given in ED Current Medications Medications Dose Ordered Sig/Chandra Route Start Time Stop Time Status Last Admin Dose Admin Dextrose 50 ml ONCE ONCE IV 07/17/22 18:00 07/17/22 18:01 DC 07/17/22 18:03 50 ML (MAYTE BAH DO) Vital Signs/I&O 07/17/22 17:30 Temp 36.2 Pulse 109 Resp 18 B/P (MAP) Pulse Ox 98 O2 Delivery Room Air (MAYTE BAH DO) Progress Progress Note : Time: 18:12 Progress Note Stroke activation was paged. Fingerstick blood sugar was 57. D50 is being administered. Due to patient's history and the more profound nature of her weakness, we are following through with a stroke activation. (POLLY OSHEA MD) Progress Note : Time: 18:45 Progress Note I assumed care of the patient at shift change. She is feeling better after IV D50. When speaking to her more about her previous "stroke." She tells me that she was at [facility] in [place] and had several seizures. She does have history of seizure disorder but has not had one in a long time currently. At that time she had 4 or 5 seizures while hospitalized and woke up and "could not move my right side." When asked if she was ever told that she had a stroke from bleeding in her brain or a blood clot she states no. 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 Overall she is very low risk for stroke given her age and comorbidities. Given the fact that she is completely better after correction of her blood sugar I think symptoms are more likely related to that. CT scan is negative and labs are otherwise unremarkable. Blood sugar has remained stable after correction and she is tolerating p.o. without difficulty. She has been ambulatory and has no further weakness whatsoever and is requesting to go home. She is discharged home in otherwise stable condition. (MAYTE BAH DO) Departure Communication (Admissions) Patient weakness has completely resolved after correction of her glucose and states she feels back to normal. She is requesting to go home. I believe it safe for her to do so at this time. 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 She has not had a seizure in some time but states the other day she felt "tingly" like she might have a seizure. She is on lithium and venlafaxine, neither which has had dose changes in some time. Her CT scan is negative and her NIH is now 0. I believe she is extremely low risk for CVA. She has been ambulatory here and is tolerating p.o. Her blood sugars have remained stable since correction. She is discharged home in stable condition with close follow-up. (MAYTE BAH DO) Impression Primary Impression: Right-sided muscle weakness Additional Impression: Hypoglycemia Disposition: 01 HOME, SELF-CARE Condition: Stable Departure-Patient Inst. Referrals: [facility] (PCP/Family) Primary Care Physician Patient Instructions: Low Blood Sugar in People With Diabetes Add. Discharge Instructions: Please follow-up with your doctor in the next 24 to 48 hours. Monitor your blood sugars closely and maintain on regular diet. Return to the emergency department for any recurrence of your symptoms. 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 All discharge instructions reviewed with patient and/or family. Voiced understanding. Copy Copies To 1: [facility]/POLLY COTTO MD Jul 17, 2022 17:54 MAYTE BAH DO Jul 17, 2022 19:04
[2022-07-17] MEDS ORDERED: DEXTROSE 50% 50 ML (IMS) SYR IV ONE (18:00)
[2022-07-17 18:07] LABS: ALANINE AMINOTRANSFERASE 33 U/L (0-55); ALBUMIN 4.3 GM/DL (3.2-4.5); ALKALINE PHOSPHATASE 66 U/L (40-136); BILIRUBIN,TOTAL 0.2 MG/DL (0.1-1.0); BUN/CREATININE RATIO 20; CALCIUM 9.5 MG/DL (8.5-10.1); CARBON DIOXIDE 26 MMOL/L (21-32); CHLORIDE 102 MMOL/L (98-107); CREATININE SERUM 0.69 MG/DL (0.60-1.30); GFR ESTIMATED 122; GLUCOSE 65 MG/DL (70-105); POTASSIUM 3.6 MMOL/L (3.6-5.0); SODIUM 138 MMOL/L (135-145); TOTAL PROTEIN 8.3 GM/DL (6.4-8.2)
--- NOTE | 2022-07-17 18:20 | Diagnostic Imaging Report ---
INDICATION: Stroke activation. FINDINGS: The heart size, mediastinal configuration, and pulmonary vascularity are within normal limits. There is no pleural effusion, pneumothorax, or pneumonia. The osseous structures are unremarkable. IMPRESSION: No acute cardiopulmonary abnormality. Dictated by: Dictated on workstation # [id number]
--- NOTE | 2022-07-17 18:29 | Diagnostic Imaging Report ---
EXAMINATION: CT head without contrast. TECHNIQUE: Multiple contiguous axial images were obtained through the brain without the use of intravenous contrast. All CT scans use one or more of the following dose optimizing techniques: automated exposure control, MA and/or KvP adjustment based on patient size and exam type or iterative reconstruction. HISTORY: Neurologic deficit. COMPARISON: None available. FINDINGS: The vasquez-white matter differentiation is normal. No mass effect or midline shift. The ventricles are normal in size and configuration. Basilar cisterns are patent. There are no intra-axial or extra-axial fluid collections. There is no intracranial hemorrhage. The orbits are normal. Paranasal sinuses are normal. Mastoid air cells are clear. No soft tissue abnormality is seen. No osseus lesions or fractures are seen. IMPRESSION: No acute intracranial abnormality. Dictated by: Dictated on workstation # [id number]
[2022-07-17 18:30] LABS: FIBRIN DEGRADATION PRODUCTS < 0.27 UG/ML (0.00-0.49); INR 0.9 (0.8-1.4); PARTIAL THROMBOPLASTIN TIME 31 SEC (24-35); PROTHROMBIN TIME PATIENT 12.9 SEC (12.2-14.7)
[2022-07-17 18:48] LABS: BILIRUBIN,URINE NEGATIVE (NEGATIVE); CLARITY,URINE CLEAR; COLOR,URINE YELLOW; GLUCOSE, URINE (UA) NEGATIVE (NEGATIVE); KETONES,URINE NEGATIVE (NEGATIVE); LEUKOCYTE ESTERASE ,URINE 3+ (NEGATIVE); NITRITE,URINE NEGATIVE (NEGATIVE); PROTEIN,URINE NEGATIVE (NEGATIVE)
[2022-07-17 18:57] LABS: BACTERIA,URINE FEW /HPF; RBC,URINE 0-2 /HPF
[2022-07-17 18:58] LABS: TRICHOMONAS,URINE FEW /HPF
[2022-07-17 20:12] VITALS: BP 130/88
== END 2022-07-17 20:12 | disposition home or self-care (01) ==
LOC: EDUNIT# 17:28 → ER 17:29
DX: E16.0 Drug-induced hypoglycemia without coma (principal); T38.3X5A Adverse effect of insulin and oral hypoglycemic [antidiabetic] drugs, initial encounter; M62.81 Muscle weakness (generalized); G40.909 Epilepsy, unspecified, not intractable, without status epilepticus; F17.210 Nicotine dependence, cigarettes, uncomplicated; Z28.310 Unvaccinated for COVID-19
CPT/HCPCS: 36415; 70450; 71045; 80053; 80178; 81000; 82947; 84484; 84703; 85025; 85379; 85610; 85730; 87088; 93005; 93041

== ENCOUNTER 2022-08-08 13:00 | Emergency (ER) | payer MEDICAID ==
[~2022-08-08] VITALS: Ht 182.8 cm; Wt 142.8 kg
--- NOTE | 2022-08-08 13:14 | ED Neurological Problem ---
General Chief Complaint: Neurological Problems Stated Complaint: SEIZURES History of Present Illness Date Seen by Provider: Aug 08, 2022 Time Seen by Provider: 13:09 Initial Comments 26-year-old female presents following seizure. Patient reports she has a history of seizures. That she had not had any seizures for approximately 5 years. That recently her neurologist took her off her seizure medication. She reports that she had some earlier in July. That she had 3 yesterday while she was told the couple today. Patient currently has no symptoms. She has no loss of bowel or bladder. Patient reports she is a little tired but otherwise no other complaints. No recent illnesses. Allergies and Home Medications Allergies Coded Allergies: codeine (Verified Allergy, Unknown, RASH when younger, 09/15/17) Patient Home Medication List Home Medication List Reviewed: Yes Cephalexin (Cephalexin) 500 Mg Tablet, 500 MG PO TID Prescribed by: JOHN GOLDSTEIN on 04/12/222149 Docusate Sodium (Docusate Sodium) 100 Mg Capsule, 100 MG PO BID Prescribed by: SAIMA VELAZQUEZ on 09/19/17 0741 Ibuprofen (Ibuprofen) 800 Mg Tablet, 800 MG PO Q6H Prescribed by: SAIMA VELAZQUEZ on 09/19/17 0741 Oxycodone HCl/Acetaminophen (Oxycodone-Acetaminophen 10-325) 1 Each Tablet, 1-2 TAB PO Q4HR PRN for PAIN-MODERATE TO SEVERE Prescribed by: SAIMA VELAZQUEZ on 09/19/17 0741 Pantoprazole Sodium (Pantoprazole Sodium) 20 Mg Tablet.dr, 20 MG PO BID Prescribed by: FRANCES DUTTON on 03/03/222141 Vit/Iron Fumarate/FA ( Vitamins Tablet) 1 Each Tablet, 1 EACH PO DAILY, (Reported) Entered as Reported by: LUPE PAGE on 09/04/172127 Sucralfate (Carafate) 1 Gram Tablet, 1 GM PO QIDACHS Prescribed by: FRANCES DUTTON on 03/03/222141 Sulfamethoxazole/Trimethoprim (Bactrim Ds Tablet) 1 Each Tablet, 1 EACH PO BID Prescribed by: FRANCES DUTTON on 04/06/22 170 Topiramate (Topamax) 200 Mg Tablet, 200 MG PO BID, (Reported) Entered as Reported by: LUPE PAGE on 09/04/172127 Review of Systems Review of Systems Constitutional: No chills, No fever; malaise Eyes: No Symptoms Reported Ears, Nose, Mouth, Throat: no symptoms reported Respiratory: no symptoms reported Cardiovascular: no symptoms reported Gastrointestinal: no symptoms reported Genitourinary: no symptoms reported Musculoskeletal: no symptoms reported Skin: no symptoms reported Psychiatric/Neurological: See HPI Past Oghmwug-Jjmyyw-Hcacmi Hx Immunizations Up To Date Tetanus Booster (TDap): Less than 5yrs PED Vaccines UTD: Yes Seasonal Allergies Seasonal Allergies: No Past Medical History Surgery/Hospitalization HX: C SECTION, 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) Seizure Disorder Reproductive Disorders: No Female Reproductive Disorders: Denies Sexually Transmitted Disease: No HIV/AIDS: No Genitourinary: No Gastrointestinal: No Musculoskeletal: No Endocrine: No HEENT: No Loss of Vision: Denies Hearing Impairment: Denies Cancer: No Psychosocial: Yes Bipolar Integumentary: No Blood Disorders: No Family Medical History Asthma 19 FATHER G8 SISTER Cardiovascular disease GRANDFATHER, PATERNAL Diabetes mellitus 19 MOTHER GRANDFATHER, PATERNAL FH: liver disease 19 MOTHER Hypertension 19 MOTHER Physical Exam Vital Signs Vital Signs - First Documented 08/08/22 13:02 Temp 36.0 Pulse 100 Resp 23 B/P (MAP) 148/97 (114) O2 Delivery Room Air Capillary Refill : Height, Weight, BMI Height: 6'1.00" Weight: 276lbs. 0.4oz. 125.850075tk; 37.00 BMI Method:Estimated General Appearance: WD/WN, no apparent distress HEENT: PERRL/EOMI, pharynx normal Neck: full range of motion, supple Respiratory: lungs clear, normal breath sounds, no respiratory distress Cardiovascular: normal peripheral pulses, regular rate, rhythm Gastrointestinal: non tender, soft Extremities: non-tender, normal inspection Neurologic/Psychiatric: alert, normal mood/affect, oriented x 3 Crainal Nerves: normal hearing, normal speech, PERRL; No facial droop, No facial paresthesias, No facial weakness Motor/Sensory: no motor deficit, no sensory deficit Skin: normal color, warm/dry Progress/Results/Core Measures Results/Orders Lab Results Laboratory Tests Test 08/08/22 13:07 08/08/22 13:15 08/08/22 13:20 Range/Units Glucometer 85 70-110 MG/DL White Blood Count 7.5 4.3-11.0 10^3/uL Red Blood Count 4.36 3.80-5.11 10^6/uL Hemoglobin 13.2 11.5-16.0 g/dL Hematocrit 40 35-52 % Mean Corpuscular Volume 92 80-99 fL Mean Corpuscular Hemoglobin 30 25-34 pg Mean Corpuscular Hemoglobin Concent 33 32-36 g/dL Red Cell Distribution Width 13.1 10.0-14.5 % Platelet Count 288 130-400 10^3/uL Mean Platelet Volume 9.7 9.0-12.2 fL Immature Granulocyte % (Auto) 0 % Neutrophils (%) (Auto) 64 42-75 % Lymphocytes (%) (Auto) 29 12-44 % Monocytes (%) (Auto) 5 0-12 % Eosinophils (%) (Auto) 2 0-10 % Basophils (%) (Auto) 0 0-10 % Neutrophils # (Auto) 4.8 1.8-7.8 10^3/uL Lymphocytes # (Auto) 2.2 1.0-4.0 10^3/uL Monocytes # (Auto) 0.4 0.0-1.0 10^3/uL Eosinophils # (Auto) 0.1 0.0-0.3 10^3/uL Basophils # (Auto) 0.0 0.0-0.1 10^3/uL Immature Granulocyte # (Auto) 0.0 0.0-0.1 10^3/uL Sodium Level 139 135-145 MMOL/L Potassium Level 3.9 3.6-5.0 MMOL/L Chloride Level 103 98-107 MMOL/L Carbon Dioxide Level 28 21-32 MMOL/L Anion Gap 8 5-14 MMOL/L Blood Urea Nitrogen 9 7-18 MG/DL Creatinine 0.72 0.60-1.30 MG/DL Estimat Glomerular Filtration Rate 117 BUN/Creatinine Ratio 13 Glucose Level 89 70-105 MG/DL Calcium Level 9.9 8.5-10.1 MG/DL Corrected Calcium 9.9 8.5-10.1 MG/DL Total Bilirubin 0.2 0.1-1.0 MG/DL Aspartate Amino Transf (AST/SGOT) 21 5-34 U/L Alanine Aminotransferase (ALT/SGPT) 34 0-55 U/L Alkaline Phosphatase 68 40-136 U/L Total Protein 7.7 6.4-8.2 GM/DL Albumin 4.0 3.2-4.5 GM/DL Urine Color YELLOW Urine Clarity CLEAR Urine pH 7.0 5-9 Urine Specific [place] 1.010 L 1.016-1.022 Urine Protein NEGATIVE NEGATIVE Urine Glucose (UA) NEGATIVE NEGATIVE Urine Ketones NEGATIVE NEGATIVE Urine Nitrite NEGATIVE NEGATIVE Urine Bilirubin NEGATIVE NEGATIVE Urine Urobilinogen 0.2 < = 1.0 MG/DL Urine Leukocyte Esterase 2+ H NEGATIVE Urine RBC (Auto) TRACE-I H NEGATIVE Urine RBC RARE /HPF Urine WBC 5-10 H /HPF Urine Squamous Epithelial Cells 5-10 /HPF Urine Crystals NONE /LPF Urine Bacteria NEGATIVE /HPF Urine Casts NONE /LPF Urine Mucus NEGATIVE /LPF Urine Trichomonas FEW H /HPF Urine Culture Indicated YES My Orders Orders - MARTHA PECK L DO Cbc With Automated Diff (08/08/22 13:14) Comprehensive Metabolic Panel (08/08/22 13:14) Ua Culture If Indicated (08/08/22 13:14) Levetiracetam Injection (Keppra Injectio (08/08/22 13:15) Urine Culture (08/08/22 13:20) Medications Given in ED Current Medications Medications Dose Ordered Sig/Chandra Route Start Time Stop Time Status Last Admin Dose Admin Levetiracetam 1000 mg/Sodium Chloride 110 ml @ 440 mls/hr ONCE ONCE IV 08/08/22 13:15 08/08/22 13:29 DC 08/08/22 13:32 440 MLS/HR Vital Signs/I&O 08/08/22 13:02 Temp 36.0 Pulse 100 Resp 23 B/P (MAP) 148/97 (114) O2 Delivery Room Air Progress Progress Note : Progress Note Patient's urine is concerning for urinary tract and sent infection along with positive for trichomonas. I will start her on doxycycline along with Flagyl. Patient's labs otherwise normal. Patient with no further seizure activity while in the ER. I will restart her on an antiepileptic with Keppra due to her previous history and stopping medication for seizures. I did recommend she follow-up with her primary care provider and neurologist for further evaluation. Also to be sure that her urine clears. She is stable and discharged home Departure Impression Primary Impression: Trichomoniasis, urogenital Additional Impressions: Urinary tract infection Qualified Codes: N30.00 - Acute cystitis without hematuria Seizure Disposition: HOME, SELF-CARE Condition: Stable Departure-Patient Inst. Referrals: [facility] (PCP/Family) Primary Care Physician Patient Instructions: Trichomoniasis, Seizures, Adult ED, Urinary Tract Infection, Adult (DC) Add. Discharge Instructions: Follow-up with your primary care provider in 1 week to recheck your urine. Please follow-up with your neurologist to make them aware of your increase in recent seizures. All discharge instructions reviewed with patient and/or family. Voiced understanding. Scripts Doxycycline Monohydrate (Doxycycline Monohydrate) 100 Mg Tablet 100 MG PO BID, #14 TAB Prov: PECK,MARTHA L DO 08/08/22 Metronidazole (Metronidazole) 500 Mg Tablet 500 MG PO BID, #14 TAB Prov: PECK,MARTHA L DO 08/08/22 Levetiracetam (Keppra) 500 Mg Tablet 500 MG PO BID, #30 TAB Prov: PECK,MARTHA L DO 08/08/22 PECK,MARTHA L DO Aug 08, 2022 13:14
[2022-08-08 13:22] LABS: BASOPHILS % (AUTO) 0 % (0-10); EOSINOPHILS # (AUTO) 0.1 10^3/uL (0.0-0.3); EOSINOPHILS % (AUTO) 2 % (0-10); HEMATOCRIT 40 % (35-52); HEMOGLOBIN 13.2 g/dL (11.5-16.0); LYMPHOCYTES # (AUTO) 2.2 10^3/uL (1.0-4.0); LYMPHOCYTES % (AUTO) 29 % (12-44); MEAN CORPUSCULAR HEMOGLOBIN 30 pg (25-34); MEAN CORPUSCULAR HGB CONC 33 g/dL (32-36); MEAN CORPUSCULAR VOLUME 92 fL (80-99); MEAN PLATELET VOLUME 9.7 fL (9.0-12.2); MONOCYTES # (AUTO) 0.4 10^3/uL (0.0-1.0); MONOCYTES % (AUTO) 5 % (0-12); NEUTROPHILS # (AUTO) 4.8 10^3/uL (1.8-7.8); NEUTROPHILS % (AUTO) 64 % (42-75); PLATELET COUNT 288 10^3/uL (130-400); WHITE BLOOD COUNT 7.5 10^3/uL (4.3-11.0)
[2022-08-08 13:30] LABS: BILIRUBIN,URINE NEGATIVE (NEGATIVE); CLARITY,URINE CLEAR; COLOR,URINE YELLOW; GLUCOSE, URINE (UA) NEGATIVE (NEGATIVE); KETONES,URINE NEGATIVE (NEGATIVE); LEUKOCYTE ESTERASE ,URINE 2+ (NEGATIVE); NITRITE,URINE NEGATIVE (NEGATIVE); PROTEIN,URINE NEGATIVE (NEGATIVE)
[2022-08-08 13:40] LABS: BACTERIA,URINE NEGATIVE /HPF; RBC,URINE RARE /HPF; TRICHOMONAS,URINE FEW /HPF
[2022-08-08 13:44] LABS: BILIRUBIN,TOTAL 0.2 MG/DL (0.1-1.0); CALCIUM 9.9 MG/DL (8.5-10.1); CREATININE SERUM 0.72 MG/DL (0.60-1.30); POTASSIUM 3.9 MMOL/L (3.6-5.0); TOTAL PROTEIN 7.7 GM/DL (6.4-8.2)
[2022-08-08] MEDS ORDERED: LEVE500T99 PO (14:08)
[2022-08-08] MEDS ORDERED: DOXY100T31 PO (14:08)
[2022-08-08] MEDS ORDERED: METR-145 PO (14:08)
[2022-08-08 14:13] VITALS: BP 135/92
== END 2022-08-08 14:16 | disposition home or self-care (01) ==
LOC: EDUNIT# 13:00 → ER 13:01
DX: G40.909 Epilepsy, unspecified, not intractable, without status epilepticus (principal); A59.00 Urogenital trichomoniasis, unspecified; N39.0 Urinary tract infection, site not specified
CPT/HCPCS: 36415; 80053; 81000; 82947; 85025; 87077; 87088; 99283

== ENCOUNTER → 2022-09-09 | Outpatient (CLI) | payer MEDICAID ==
[~2022-09-09] MED LIST changes: +DOXY100T31 PO; +LEVE500T99 PO; +METR-145 PO
--- NOTE | 2022-09-09 22:50 | Diagnostic Imaging Report ---
HISTORY: Left wrist pain TECHNIQUE: 3 views of the left wrist. COMPARISON: None. FINDINGS: No acute fracture or dislocation is seen in the left wrist. Alignment appears normal. Joint spaces are preserved. No cortical erosions are seen. The pronator fat pad is not displaced. IMPRESSION: 1. No acute osseous abnormality is seen in the left wrist. Dictated by: Dictated on workstation # [id number]
== END ==
LOC: RAD 19:14
PROVIDERS: ATTEND Nurse Practitioner Family
DX: M25.532 Pain in left wrist (principal)
CPT/HCPCS: 73110

== ENCOUNTER 2022-09-23 18:22 | Emergency (ER) | payer MEDICAID ==
[~2022-09-23] VITALS: Ht 185 cm; Wt 124.0 kg
[2022-09-23] MEDS ORDERED: RX-TRIMETH/SULFA. 160-800 MG (BACTRIM DS) TAB PPK#2 PO STA (18:38)
[2022-09-23] MEDS ORDERED: SULF1TAB38 PO (18:41)
--- NOTE | 2022-09-23 18:41 | ED Integumentary General ---
General Chief Complaint: Skin/Wound Problems Stated Complaint: KNOT ON RIGHT BREAST/PAIN Nursing Triage Note: pt presents to ED with c/o a knot/abscess on the under side of right breast (JAGDEEP POSEY) History of Present Illness Date Seen by Provider: Sep 23, 2022 Time Seen by Provider: 18:33 Initial Comments 26 year old female presents with small cyst to right lower breast (approximately 6 o'clock) that she noted yesterday. History of previous cysts removed from breasts, patient reports they have always been benign. Family history of breast cancer. Patient has never had mammogram. She denies warmth or drainage from cyst. Timing/Duration: yesterday Severity: mild Location: torso Possible Cause: no cause identified Associated Symptoms: No blisters, No change in skin texture, No fever, No malaise; swelling/mass/lumps (right breast) (JAGDEEP POSEY) Allergies and Home Medications Allergies Coded Allergies: codeine (Verified Allergy, Unknown, RASH when younger, 09/15/17) Patient Home Medication List Home Medication List Reviewed: Yes (JAGDEEP POSEY) Cephalexin (Cephalexin) 500 Mg Tablet, 500 MG PO TID Prescribed by: JOHN GOLDSTEIN on 04/12/222149 Docusate Sodium (Docusate Sodium) 100 Mg Capsule, 100 MG PO BID Prescribed by: SAIMA VELAZQUEZ on 09/19/17 0741 Doxycycline Monohydrate (Doxycycline Monohydrate) 100 Mg Tablet, 100 MG PO BID Prescribed by: MARTHA PECK on 08/08/22 1408 Ibuprofen (Ibuprofen) 800 Mg Tablet, 800 MG PO Q6H Prescribed by: SAIMA VELAZQUEZ on 09/19/17 0741 Levetiracetam (Keppra) 500 Mg Tablet, 500 MG PO BID Prescribed by: MARTHA PECK on 08/08/22 1408 Metronidazole (Metronidazole) 500 Mg Tablet, 500 MG PO BID Prescribed by: MARTHA PECK on 08/08/22 1408 Oxycodone HCl/Acetaminophen (Oxycodone-Acetaminophen 10-325) 1 Each Tablet, 1-2 TAB PO Q4HR PRN for PAIN-MODERATE TO SEVERE Prescribed by: SAIMA VELAZQUEZ on 09/19/17 0741 Pantoprazole Sodium (Pantoprazole Sodium) 20 Mg Tablet.dr, 20 MG PO BID Prescribed by: FRANCES DUTTON on 03/03/222141 Vit/Iron Fumarate/FA ( Vitamins Tablet) 1 Each Tablet, 1 EACH PO DAILY, (Reported) Entered as Reported by: LUPE PAGE on 09/04/172127 Sucralfate (Carafate) 1 Gram Tablet, 1 GM PO QIDACHS Prescribed by: FRANCES DUTTON on 03/03/222141 Sulfamethoxazole/Trimethoprim (Bactrim Ds Tablet) 1 Each Tablet, 1 EACH PO BID Prescribed by: FRANCES DUTTON on 04/06/22 170 Sulfamethoxazole/Trimethoprim (Bactrim Ds Tablet) 1 Each Tablet, 1 EACH PO BID Prescribed by: JAGDEEP POSEY on 09/23/22 184 Topiramate (Topamax) 200 Mg Tablet, 200 MG PO BID, (Reported) Entered as Reported by: LUPE PAGE on 09/04/172127 Review of Systems Review of Systems Constitutional: no symptoms reported, see HPI Skin: see HPI, lumps (right breast. 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) Seizure Disorder Last Menstrual Period: Sep 23, 2022 Reproductive Disorders: No Female Reproductive Disorders: Denies Sexually Transmitted Disease: No HIV/AIDS: No Genitourinary: No Gastrointestinal: No Musculoskeletal: No Endocrine: No HEENT: No Loss of Vision: Denies Hearing Impairment: Denies Cancer: No Psychosocial: Yes Bipolar Integumentary: No Blood Disorders: No (JAGDEEP POSEY) Family Medical History Reviewed Nursing Family Hx (JAGDEEP POSEY VANNESSA) Asthma 19 FATHER G8 SISTER Cardiovascular disease GRANDFATHER, PATERNAL Diabetes mellitus 19 MOTHER GRANDFATHER, PATERNAL FH: liver disease 19 MOTHER Hypertension 19 MOTHER Physical Exam Vital Signs Vital Signs - First Documented 09/23/22 18:33 Temp 36.4 Pulse 93 Resp 20 B/P (MAP) 129/80 (96) Pulse Ox 97 O2 Delivery Room Air (BRAYDEN,THO K DO) Vital Signs Capillary Refill : Less Than 3 Seconds (KALPESHJAGDEEP HURD) General Appearance: WD/WN, no apparent distress Cardiovascular: normal peripheral pulses, regular rate, rhythm Respiratory: chest non-tender, lungs clear, normal breath sounds Neurologic/Psychiatric: no motor/sensory deficits, alert, normal mood/affect, oriented x 3 Skin: normal color, warm/dry Skin Problem Location: torso (right breast) Skin Problem Character: abscess (small cystic structure at 6 oclock right breast. No drainage or warmth, trace erythema. No induration or fluctuance. ), tenderness (JAGDEEP POSEY) Progress/Results/Core Measures Results/Orders Vital Signs/I&O 09/23/22 09/23/22 18:33 18:48 Temp 36.4 Pulse 93 89 Resp 20 20 B/P (MAP) 129/80 (96) 108/82 Pulse Ox 97 97 O2 Delivery Room Air Room Air (BRAYDEN,THO K DO) Blood Pressure Mean: 96 Departure Impression Primary Impression: Abscess of right breast Disposition: 01 HOME, SELF-CARE Condition: Stable Departure-Patient Inst. Decision time for Depature: 18:35 (JAGDEEP POSEY) Referrals: [facility] [place], [place] (PCP/Family) Primary Care Physician Patient Instructions: Wound Care (DC), Skin Abscess Add. Discharge Instructions: Apply warm moist compresses to the area of concern on your right breast. Take antibiotics as prescribed. You may alternate between Tylenol 650 mg and ibuprofen 600 mg every 4 hours for pain. Follow-up at [facility] in approximately 48 hours sooner if area is getting worse. Return to the emergency department for new, urgent healthcare needs. All discharge instructions reviewed with patient and/or family. Voiced understanding. Scripts Sulfamethoxazole/Trimethoprim (Bactrim Ds Tablet) 1 Each Tablet 1 EACH PO BID, #14 TAB 0 Refills Prov: JAGDEEP POSEY 09/23/22 ATTENDING PHYSICIAN NOTE: I WAS PHYSICALLY PRESENT ER PHYSICIAN, BUT I WAS NOT INVOLVED IN ANY DECISION MAKING OR ANY CARE OF THIS PATIENT, AND I AM NOT COLLABORATING PHYSICIAN. (THO OWEN DO) JAGDEEP POSEY Sep 23, 2022 18:41 THO OWEN DO Sep 24, 2022 04:19
[2022-09-23 18:48] VITALS: BP 108/82
== END 2022-09-23 18:49 | disposition home or self-care (01) ==
LOC: EDUNIT# 18:22 → ER 18:24
DX: N61.1 Abscess of the breast and nipple (principal); Z80.3 Family history of malignant neoplasm of breast; F17.210 Nicotine dependence, cigarettes, uncomplicated
CPT/HCPCS: 99283

== ENCOUNTER 2022-12-15 20:27 | Emergency (ER) | payer MEDICAID ==
[~2022-12-15] VITALS: Ht 185.5 cm; Wt 124.7 kg
[2022-12-15 20:54] LABS: BASOPHILS % (AUTO) 0 % (0-10); EOSINOPHILS # (AUTO) 0.1 10^3/uL (0.0-0.3); EOSINOPHILS % (AUTO) 1 % (0-10); HEMATOCRIT 40 % (35-52); LYMPHOCYTES % (AUTO) 33 % (12-44); MEAN CORPUSCULAR HEMOGLOBIN 31 pg (25-34); MEAN CORPUSCULAR HGB CONC 33 g/dL (32-36); MEAN CORPUSCULAR VOLUME 93 fL (80-99); MEAN PLATELET VOLUME 9.7 fL (9.0-12.2); MONOCYTES # (AUTO) 0.4 10^3/uL (0.0-1.0); MONOCYTES % (AUTO) 4 % (0-12); NEUTROPHILS # (AUTO) 5.4 10^3/uL (1.8-7.8); NEUTROPHILS % (AUTO) 61 % (42-75); PLATELET COUNT 280 10^3/uL (130-400); WHITE BLOOD COUNT 8.9 10^3/uL (4.3-11.0)
--- NOTE | 2022-12-15 20:54 | ED Abdominal Pain ---
General Chief Complaint: Abdominal/GI Problems Stated Complaint: RIGHT SIDE BACK/CHEST PAIN Source of Information: Patient Exam Limitations: No Limitations (ANNAMARIE COX APRN) History of Present Illness Date Seen by Provider: December 15, 2022 Time Seen by Provider: 20:32 Initial Comments 27-year-old female presents to the ED with complaints of right upper quadrant abdominal pain starting today after eating greasy food. She states that this pain occurred 3 times each after eating greasy foods. She also reports 3 episodes of vomiting, once after each time she ate. She reports that approximately 1 hour ago when she ate, the pain radiated into her chest. She also reports that the last couple days she has had intermittent chest pain when walking. Reports shortness of air when the pain gets really bad. Denies fevers, diarrhea. Last bowel movement was 45 minutes ago. Last menstrual cycle was 11/21/2022. Denies any vaginal bleeding or discharge. Past medical history includes seizures, hyperlipidemia, bipolar, ADHD, multiple personality disorder, depression. (ANNAMARIE COX APRN) Allergies and Home Medications Allergies Coded Allergies: codeine (Verified Allergy, Unknown, RASH when younger, 09/15/17) Patient Home Medication List Home Medication List Reviewed: Yes (ANNAMARIE COX APRN) Cephalexin (Cephalexin) 500 Mg Tablet, 500 MG PO TID Prescribed by: JOHN GOLDSTEIN on 04/12/222149 Docusate Sodium (Docusate Sodium) 100 Mg Capsule, 100 MG PO BID Prescribed by: SAIMA VELAZQUEZ on 09/19/17 0741 Doxycycline Monohydrate (Doxycycline Monohydrate) 100 Mg Tablet, 100 MG PO BID Prescribed by: MARTHA PECK on 08/08/22 1408 Ibuprofen (Ibuprofen) 800 Mg Tablet, 800 MG PO Q6H Prescribed by: SAIMA VELAZQUEZ on 09/19/17 0741 Levetiracetam (Keppra) 500 Mg Tablet, 500 MG PO BID Prescribed by: MARTHA PECK on 08/08/22 1408 Metronidazole (Metronidazole) 500 Mg Tablet, 500 MG PO BID Prescribed by: MARTHA PECK on 08/08/22 1408 Oxycodone HCl/Acetaminophen (Oxycodone-Acetaminophen 10-325) 1 Each Tablet, 1-2 TAB PO Q4HR PRN for PAIN-MODERATE TO SEVERE Prescribed by: SAIMA VELAZQUEZ on 09/19/17 0741 Pantoprazole Sodium (Pantoprazole Sodium) 20 Mg Tablet.dr, 20 MG PO BID Prescribed by: FRANCES DUTTON on 03/03/222141 Vit/Iron Fumarate/FA ( Vitamins Tablet) 1 Each Tablet, 1 EACH PO DAILY, (Reported) Entered as Reported by: LUPE PAGE on 09/04/172127 Sucralfate (Carafate) 1 Gram Tablet, 1 GM PO QIDACHS Prescribed by: FRANCES DUTTON on 03/03/222141 Sulfamethoxazole/Trimethoprim (Bactrim Ds Tablet) 1 Each Tablet, 1 EACH PO BID Prescribed by: FRANCES DUTTON on 04/06/221704 Sulfamethoxazole/Trimethoprim (Bactrim Ds Tablet) 1 Each Tablet, 1 EACH PO BID Prescribed by: JAGDEEP POSEY on 09/23/22 184 Topiramate (Topamax) 200 Mg Tablet, 200 MG PO BID, (Reported) Entered as Reported by: LUPE PAGE on 09/04/172127 Review of Systems Review of Systems Constitutional: see HPI (ANNAMARIE COX APRN) Past Jrxxiic-Invcsg-Fwssln Hx Patient Social History Tobacco Use?: Yes Tobacco type used: Cigarettes Smoking Status: Current Everyday Smoker Use of E-Cig and/or Vaping dev: No Substance use?: No Alcohol Use?: No (ANNAMARIE COX APRN) Immunizations Up To Date Tetanus Booster (TDap): Less than 5yrs PED Vaccines UTD: Yes Influenza Vaccine Up-to-Date: Yes; Up-to-Date First/Initial COVID19 Vaccinat: NONE Second COVID19 Vaccination [place]: NONE Third COVID19 Vaccination Date: NONE COVID19 Vaccine Chain Repairer: NONE (ANNAMARIE COX APRN) Seasonal Allergies Seasonal Allergies: No (ANNAMARIE COX APRN) Past Medical History Surgery/Hospitalization HX: C SECTION, 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 Stroke reji cory Lee's paraly) Seizure Disorder Reproductive Disorders: No Female Reproductive Disorders: Denies Sexually Transmitted Disease: No HIV/AIDS: No Genitourinary: No Gastrointestinal: No Musculoskeletal: No Endocrine: No HEENT: No Loss of Vision: Denies Hearing Impairment: Denies Cancer: No Psychosocial: Yes Bipolar Integumentary: No Blood Disorders: No (ANNAMARIE COX APRN) Family Medical History Asthma 19 FATHER G8 SISTER Cardiovascular disease GRANDFATHER, PATERNAL Diabetes mellitus 19 MOTHER GRANDFATHER, PATERNAL FH: liver disease 19 MOTHER Hypertension 19 MOTHER Physical Exam Vital Signs Vital Signs - First Documented 12/15/22 20:32 Temp 36.8 Pulse 102 Resp 20 B/P (MAP) 151/117 (128) Pulse Ox 100 O2 Delivery Room Air (POLLY OSHEA MD) Vital Signs Capillary Refill : (ANNAMARIE COX APRN) Height/Weight/BMI Height: 6'1.00" Weight: 276lbs. 0.4oz. 125.594230dn; 36.00 BMI Method:Estimated General Appearance: WD/WN, no apparent distress Neck: supple, normal inspection Respiratory: lungs clear, normal breath sounds, no respiratory distress, no accessory muscle use Cardiovascular: regular rate, rhythm Gastrointestinal: normal bowel sounds, soft, tenderness (Right upper quadrant) Extremities: normal range of motion, normal inspection Neurologic/Psychiatric: alert, normal mood/affect Skin: normal color, warm/dry (ANNAMARIE COX APRN) Progress/Results/Core Measures Results/Orders Lab Results Laboratory Tests Test 12/15/22 20:36 12/15/22 22:41 Range/Units White Blood Count 8.9 4.3-11.0 10^3/uL Red Blood Count 4.23 3.80-5.11 10^6/uL Hemoglobin 13.0 11.5-16.0 g/dL Hematocrit 40 35-52 % Mean Corpuscular Volume 93 80-99 fL Mean Corpuscular Hemoglobin 31 25-34 pg Mean Corpuscular Hemoglobin Concent 33 32-36 g/dL Red Cell Distribution Width 14.0 10.0-14.5 % Platelet Count 280 130-400 10^3/uL Mean Platelet Volume 9.7 9.0-12.2 fL Immature Granulocyte % (Auto) 0 % Neutrophils (%) (Auto) 61 42-75 % Lymphocytes (%) (Auto) 33 12-44 % Monocytes (%) (Auto) 4 0-12 % Eosinophils (%) (Auto) 1 0-10 % Basophils (%) (Auto) 0 0-10 % Neutrophils # (Auto) 5.4 1.8-7.8 10^3/uL Lymphocytes # (Auto) 3.0 1.0-4.0 10^3/uL Monocytes # (Auto) 0.4 0.0-1.0 10^3/uL Eosinophils # (Auto) 0.1 0.0-0.3 10^3/uL Basophils # (Auto) 0.0 0.0-0.1 10^3/uL Immature Granulocyte # (Auto) 0.0 0.0-0.1 10^3/uL Sodium Level 137 135-145 MMOL/L Potassium Level 4.0 3.6-5.0 MMOL/L Chloride Level 105 98-107 MMOL/L Carbon Dioxide Level 23 21-32 MMOL/L Anion Gap 9 5-14 MMOL/L Blood Urea Nitrogen 12 7-18 MG/DL Creatinine 0.75 0.60-1.30 MG/DL Estimat Glomerular Filtration Rate 111 BUN/Creatinine Ratio 16 Glucose Level 99 70-105 MG/DL Calcium Level 9.5 8.5-10.1 MG/DL Corrected Calcium 9.5 8.5-10.1 MG/DL Magnesium Level 2.2 1.6-2.4 MG/DL Total Bilirubin 0.2 0.1-1.0 MG/DL Aspartate Amino Transf (AST/SGOT) 16 5-34 U/L Alanine Aminotransferase (ALT/SGPT) 22 0-55 U/L Alkaline Phosphatase 66 40-136 U/L Troponin I < 0.028 < 0.028 <0.028 NG/ML Total Protein 7.5 6.4-8.2 GM/DL Albumin 4.0 3.2-4.5 GM/DL Amylase Level 38 25-125 U/L Lipase 30 8-78 U/L (POLLY OSHEA MD) My Orders Orders - POLLY OSHEA MD Iohexol Injection (Omnipaque 350 Mg/Ml 1 (12/15/22 21:00) Received Contrast (Hold Metformin- Contr (12/15/22 21:00) Ns (Ivpb) (Sodium Chloride 0.9% Ivpb Bag (12/15/22 21:00) (POLLY OSHEA MD) Vital Signs/I&O 12/15/22 12/15/22 20:32 23:35 Temp 36.8 Pulse 102 90 Resp 20 20 B/P (MAP) 151/117 (128) 130/85 Pulse Ox 100 98 O2 Delivery Room Air Room Air (POLLY OSHEA MD) Progress Progress Note : Progress Note Patient seen and evaluated, resting comfortably in bed, no acute distress. Based on exam and symptoms, this is likely cholecystitis. Work-up initiated with CBC, CMP, amylase, lipase, troponin, magnesium, EKG, chest x-ray, UA, urine , CT abdomen pelvis. Toradol ordered for pain. Labs and imaging reviewed. CBC grossly normal. CMP grossly normal. First troponin negative. Chest x-ray negative for acute cardiopulmonary process. CT abdomen pelvis shows no acute findings. We will repeat a 3-hour troponin. Repeat troponin negative. Results discussed with patient. Patient instructed to follow-up with primary care provider tomorrow to schedule an outpatient ultrasound. Discharge instructions and return precautions provided. (ANNAMARIE COX APRN) Initial ECG Impression Date: December 15, 2022 Initial ECG Impression Time: 20:40 Initial ECG Rate: 101 Initial ECG Rhythm: S.Tach Initial ECG Intervals: Normal Initial ECG Impression: Normal Initial ECG Comparisson: Unchanged (ANNAMARIE COX APRN) Diagnostic Imaging Diagonstic Imaging: Xray Plain Films/CT/US/NM/MRI: chest Comments [facility], [place] NAME: NORBERT GILLETTE [facility] REC#: [id number] PT STATUS: REG ER : 1995 PHYSICIAN: ANNAMARIE COX APRN ADMIT DATE: 12/15/22/ER Signed Date of Exam:12/15/22 CHEST 1 VIEW, AP/PA ONLY EXAMINATION: Chest 1 view. HISTORY: Chest pain. COMPARISON: 07/17/2022. FINDINGS: The lung volumes are normal. No focal consolidation is seen. No large pleural effusion or pneumothorax is seen. The cardiomediastinal silhouette is normal in size and contour. No acute osseous abnormality is seen. IMPRESSION: No acute pleuroparenchymal process. Dictated by: Dictated on workstation # [id number] Dict: 12/15/222113 Trans: 12/15/222134 [facility] [id number] Interpreted by: MARIUSZ LOPEZ DO Electronically signed by: MARIUSZ LOPEZ DO 12/15/222134 Diagonstic Imaging: CT Plain Films/CT/US/NM/MRI: abdomen, pelvis Comments [facility], [place] NAME: NORBERT GILLETTE [facility] REC#: [id number] PT STATUS: REG ER : 1995 PHYSICIAN: ANNAMARIE COX APRN ADMIT DATE: 12/15/22/ER Signed Date of Exam:12/15/22 CT ABDOMEN/PELVIS W EXAMINATION: CT abdomen and pelvis with intravenous contrast. TECHNIQUE: Multiple contiguous axial images were obtained through the abdomen and pelvis after the uneventful administration of intravenous contrast. All CT scans use one or more of the following dose optimizing techniques: automated exposure control, MA and/or KvP adjustment based on patient size and exam type or iterative reconstruction. HISTORY: Right upper quadrant abdominal pain. COMPARISON: None available. FINDINGS: The heart is unremarkable. The included lung bases are clear. The liver, spleen, pancreas, adrenal glands and kidneys have a normal appearance. The gallbladder is decompressed. Benign-appearing cyst is seen in the mid left kidney. There is no pathologically enlarged mesenteric or retroperitoneal adenopathy. The bowel loops are nondilated. The appendix is visualized in the right lower quadrant and has a normal appearance. There is no free fluid or free air. No acute osseous abnormality. Ureters and bladder are grossly normal. There is no free air, loculated collection or adenopathy in the pelvis. IMPRESSION: No acute abnormality in the abdomen and pelvis. Dictated by: Dictated on workstation # [id number] Dict: 12/15/222111 Trans: 12/15/222134 [facility] [id number] Interpreted by: MARIUSZ LOPEZ DO Electronically signed by: MARIUSZ LOPEZ DO 12/15/222134 (ANNAMARIE COX APRN) Departure Impression Primary Impression: Abdominal pain Qualified Codes: R10.11 - Right upper quadrant pain Disposition: 01 HOME, SELF-CARE Condition: Stable Departure-Patient Inst. Decision time for Depature: 23:31 (ANNAMARIE COX APRN) Referrals: [facility] (PCP/Family) Primary Care Physician Patient Instructions: Abdominal Pain, Adult ED Add. Discharge Instructions: Follow-up with your primary care provider tomorrow as scheduled. You may need an ultrasound of your gallbladder. Return for severe pain, recurrent vomiting, fever, or any other new, concerning, or worsening symptoms. All discharge instructions reviewed with patient and/or family. Voiced understanding. ATTENDING PHYSICIAN NOTE: I was physically present as attending physician in the emergency department during the care of this patient, but I was not directly involved in the decision making or delivery of care for this patient. (POLLY OSHEA MD) ANNAMARIE COX APRN December 15, 2022 20:54 POLLY OSHEA MD December 18, 2022 08:41
[2022-12-15] MEDS ORDERED: NS 100 ML (IVPB) BAG IV ONE (21:00)
[2022-12-15] MEDS ORDERED: KETOROLAC 30 MG/ML VIAL IVP ONE (21:00)
[2022-12-15] MEDS ORDERED: IOHEXOL 350 MG/ML 100 ML (OMNIPAQUE 350) VIAL IV ONE (21:00)
[2022-12-15] MEDS ORDERED: HOLD METFORMIN - RECEIVED CONTRAST 20 ML VIAL IV SCH (21:00)
[2022-12-15 21:15] LABS: ALKALINE PHOSPHATASE 66 U/L (40-136); AMYLASE 38 U/L (25-125); BILIRUBIN,TOTAL 0.2 MG/DL (0.1-1.0); BUN/CREATININE RATIO 16; CALCIUM 9.5 MG/DL (8.5-10.1); CARBON DIOXIDE 23 MMOL/L (21-32); CHLORIDE 105 MMOL/L (98-107); CREATININE SERUM 0.75 MG/DL (0.60-1.30); GFR ESTIMATED 111; GLUCOSE 99 MG/DL (70-105); LIPASE 30 U/L (8-78); MAGNESIUM 2.2 MG/DL (1.6-2.4); SODIUM 137 MMOL/L (135-145); TOTAL PROTEIN 7.5 GM/DL (6.4-8.2)
--- NOTE | 2022-12-15 21:16 | Diagnostic Imaging Report ---
EXAMINATION: CT abdomen and pelvis with intravenous contrast. TECHNIQUE: Multiple contiguous axial images were obtained through the abdomen and pelvis after the uneventful administration of intravenous contrast. All CT scans use one or more of the following dose optimizing techniques: automated exposure control, MA and/or KvP adjustment based on patient size and exam type or iterative reconstruction. HISTORY: Right upper quadrant abdominal pain. COMPARISON: None available. FINDINGS: The heart is unremarkable. The included lung bases are clear. The liver, spleen, pancreas, adrenal glands and kidneys have a normal appearance. The gallbladder is decompressed. Benign-appearing cyst is seen in the mid left kidney. There is no pathologically enlarged mesenteric or retroperitoneal adenopathy. The bowel loops are nondilated. The appendix is visualized in the right lower quadrant and has a normal appearance. There is no free fluid or free air. No acute osseous abnormality. Ureters and bladder are grossly normal. There is no free air, loculated collection or adenopathy in the pelvis. IMPRESSION: No acute abnormality in the abdomen and pelvis. Dictated by: Dictated on workstation # [id number]
--- NOTE | 2022-12-15 21:16 | Diagnostic Imaging Report ---
EXAMINATION: Chest 1 view. HISTORY: Chest pain. COMPARISON: 07/17/2022. FINDINGS: The lung volumes are normal. No focal consolidation is seen. No large pleural effusion or pneumothorax is seen. The cardiomediastinal silhouette is normal in size and contour. No acute osseous abnormality is seen. IMPRESSION: No acute pleuroparenchymal process. Dictated by: Dictated on workstation # [id number]
[2022-12-15 21:48] LABS: ALANINE AMINOTRANSFERASE 22 U/L (0-55)
[2022-12-15 23:35] VITALS: BP 130/85
== END 2022-12-15 23:35 | disposition home or self-care (01) ==
LOC: EDUNIT# 20:27 → ER 20:29
DX: R10.11 Right upper quadrant pain (principal); R07.9 Chest pain, unspecified; R06.02 Shortness of breath; F17.210 Nicotine dependence, cigarettes, uncomplicated; Z28.310 Unvaccinated for COVID-19
CPT/HCPCS: 36415; 71045; 74177; 80053; 82150; 83690; 83735; 84484; 85025; 93005; 93041